=== PATIENT | female | born 1950 | race Hispanic/Latino ===

== ENCOUNTER → 2018-09-27 | Outpatient (CLI) | payer OTHER | END | disposition home or self-care (01) | LOC: RAH 14:22 | PROVIDERS: ATTEND Physical Medicine & Rehabilitation | DX: M47.26 Other spondylosis with radiculopathy, lumbar region (principal); M48.061 Spinal stenosis, lumbar region without neurogenic claudication; M41.86 Other forms of scoliosis, lumbar region | CPT/HCPCS: 72110 ==

== ENCOUNTER → 2019-10-29 | Outpatient (CLI) | payer OTHER | END | disposition home or self-care (01) | LOC: RAH 09:47 | PROVIDERS: ATTEND Internal Medicine | DX: I07.1 Rheumatic tricuspid insufficiency (principal); I48.0 Paroxysmal atrial fibrillation | CPT/HCPCS: 93306; 93356 ==

== ENCOUNTER → 2023-11-07 | Outpatient (CLI) | payer MEDICARE ==
[~2023-11-07] MED LIST: ACET-2079 PO; AEC81 PO; ALEN70TA80 PO; DONE5TAB33 PO; GABA-529 PO; LINA5TAB PO; LORA10TA7 PO; MEMA10TA21 PO; METO-408 PO; MIRA50TA PO; PANT40TA54 PO; PRAV20TA4 PO
== END | disposition home or self-care (01) ==
LOC: RAH 14:06
PROVIDERS: ATTEND Internal Medicine
DX: Z12.31 Encounter for screening mammogram for malignant neoplasm of breast (principal); R92.323 Mammographic fibroglandular density, bilateral breasts
CPT/HCPCS: 77067

== ENCOUNTER 2025-06-08 15:53 | Inpatient (IN) | payer MEDICARE ==
[~2025-06-08] VITALS: Ht 152.4 cm; Wt 84.6 kg
[~2025-06-08 15:53] MED LIST changes: -PRAV20TA4 PO; +PRAV20TA59 PO
[2025-06-08 16:16] LABS: IMMATURE GRANULOCYTE ABSOLUTE 0.03 K/uL (0-1); NUCLEATED RED BLOOD CELLS 0.0 % (0.0-0.19); PLATELET COUNT (AUTO) 162 K/uL (130-400); RED BLOOD CELL COUNT(AUTO) 3.55 MIL/uL (4.00-5.50); RED CELL DISTRIBUTION WIDTH 12.8 % (11.0-15.5); WHITE BLOOD COUNT (AUTO) 7.1 K/uL (4.8-10.8)
[2025-06-08 16:32] LABS: CREATININE 1.8 mg/dL (0.5-1.0); GLOMERULAR FILTR. RATE CALC 29 mL/min (>90); GLUCOSE,RANDOM 101 mg/dL (70-105); SODIUM SERUM 139 mmol/L (136-145); UREA NITROGEN, BLOOD 19 mg/dL (7-18)
--- NOTE | 2025-06-08 16:47 | HMCIMG ---
EXAM: CR Chest, 2 View. CLINICAL HISTORY: [facility] [place] COMPARISON: None provided. FINDINGS: LUNGS: The lungs show no infiltrate or other acute finding. PLEURAL SPACES: No pleural effusion or pneumothorax. MEDIASTINUM: Cardiac size and mediastinal contours within normal limits. BONES: No acute osseous abnormality. IMPRESSION: No acute cardiopulmonary pathology is evident. /[place]
[2025-06-08 16:54] LABS: ASPARTATE AMINOTRANSFERASE 101 U/L (10-37); TOTAL PROTEIN, SERUM 7.6 g/dL (6.0-8.3)
[2025-06-08 16:59] LABS: CREATINE KINASE, TOTAL 2895 U/L (21-232)
[2025-06-08 17:50] LABS: GLUCOSE, URINE (UA) 500 mg/dL (NEGATIVE); LEUKOCYTE ESTERASE ,URINE 500 Leu/uL (NEGATIVE); NITRATE,URINE NEGATIVE (NEGATIVE); OCCULT BLOOD,URINE MODERATE (NEGATIVE)
[2025-06-08 17:51] LABS: APPEARANCE,URINE CLOUDY (CLEAR)
[2025-06-08 17:52] LABS: ADD UA MICROSCOPIC YES
--- NOTE | 2025-06-08 18:04 | EKG ---
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
--- NOTE | 2025-06-08 18:42 | ERN ---
ED Note History of Present Illness Stated Complaint: FAILURE TO THRIVE Chief Complaint: Failure to Thrive Time Seen by MD: 15:57 Dictation: 74-year-old female presenting to the emergency department by EMS for worsening mental status failure to thrive not tolerating p.o. intake. Patient has multiple medical problems. Allergies: Coded Allergies: No Known Allergies (Unverified Allergy, Unknown, 12/30/22) Home Meds Active Scripts Linagliptin (Tradjenta) 5 Mg Tablet, 5 MG PO DAILY, #30 TAB 1 Refill Prov:JANAY GAUTAM MD 12/24/22 Pantoprazole Sodium (Pantoprazole Sodium) 40 Mg Tablet.dr, 40 MG PO DAILY, #30 TAB 1 Refill Prov:JANAY GAUTAM MD 12/24/22 Acetaminophen with Codeine (Acetaminophen-Cod #3 Tablet) 1 Each Tablet, 0.5 EACH PO Q4HPRN PRN for PAIN LEVEL 6 TO 10, #30 TAB Prov:JANAY GAUTAM MD 12/24/22 Gabapentin (Gabapentin) 100 Mg Capsule, 100 MG PO AD, #30 CAP 1 Refill 4 CAPS DAILY DIRECTED Prov:JANAY GAUTAM MD 12/24/22 Metoprolol Succinate (Metoprolol Succinate) 25 Mg Tab.er.24h, 25 MG PO DAILY, #60 TAB 1 Refill Prov:JANAY GAUTAM MD 12/22/22 Pravastatin Sodium (Pravastatin Sodium) 20 Mg Tablet, 20 MG PO HS, #60 TAB 1 Refill Prov:JANAY GAUTAM MD 12/21/22 Reported Medications Mirabegron (Myrbetriq) 50 Mg Tab.er.24h, 1 TAB PO DAILY for bladder muscle dysfunction 12/21/22 Loratadine (Claritin) 10 Mg Tab, 1 TAB PO DAILY 12/21/22 Donepezil HCl (Donepezil HCl) 5 Mg Tablet, 1 TAB PO DAILY 12/21/22 Alendronate Sodium (Alendronate Sodium) 70 Mg Tablet, 1 TAB PO QWEEK 12/21/22 Aspirin (ASPIRIN 81 MG ECTAB) 81 Mg Ectab, 81 MG PO HS, TAB.EC 12/21/22 Memantine HCl (Memantine HCl) 10 Mg Tablet, 1 TAB PO BID 12/21/22 Past Medical History Past Medical History: Dementia, Diabetes-Type II, High Cholesterol, Hypertension Surgical History: Other Surgical History Other: LEFT KNEE SX Social History: Negative, Lives with family Review of System Dictation Unable to obtain due to altered mental status Initial Vital Sign VS Vital Signs Date Time Temp Pulse Resp B/P (MAP) Pulse Ox O2 Delivery O2 Flow Rate FiO2 06/08/25 15:58 97.9 61 20 115/55 96 Room Air 0 06/08/25 17:00 21 Physical Exam Dictation General: awake, appears lethargic and weak Head/Face: Normocephalic, atraumatic Eyes: PERRL, EOMI, vision at baseline ENT: oral cavity clear, TMs clear, no signs of infection Neck: Trachea midline, supple, no nuchal rigidity Cardiovascular: RRR, normal S1/S2, No MRGs, no JVD Respiratory: CTAB, no respiratory distress, No rales or wheezes Abdomen: Soft, non-tender, non-distended, normal bowel sounds, no guarding or rebound. Skin: Warm, dry, normal turgor, no rash MS/Extremity: Pulses equal, no cyanosis, neurovascular intact, FROM Neuro: Appears lethargic weak moves all extremities follows commands, Results (Laboratory/Radiology) Laboratory/Radiology Laboratory Tests Test 06/08/25 16:06 06/08/25 17:40 White Blood Count 7.1 K/uL (4.8-10.8) Red Blood Count 3.55 MIL/uL (4.00-5.50) L Hemoglobin 10.3 g/dL (12.0-16.0) L Hematocrit 32.6 % (36-48) L Mean Corpuscular Volume 91.8 fL (79-99) Mean Corpuscular Hemoglobin 29.0 pg (27.0-33.0) Mean Corpuscular Hemoglobin Concent 31.6 g/dL (32.0-36.0) L Red Cell Distribution Width 12.8 % (11.0-15.5) Platelet Count 162 K/uL (130-400) Mean Platelet Volume 11.4 fL (7.5-10.5) H Immature Granulocyte % (Auto) 0.4 % (0-1) Neutrophils (%) (Auto) 72.2 % (40.0-77.0) Lymphocytes (%) (Auto) 16.7 % (21.0-51.0) L Monocytes (%) (Auto) 7.9 % (3.0-13.0) Eosinophils (%) (Auto) 2.5 % (0.0-8.0) Basophils (%) (Auto) 0.3 % (0.0-5.0) Neutrophils # (Auto) 5.1 K/uL (1.8-7.7) Lymphocytes # (Auto) 1.2 K/uL (1.0-4.8) Monocytes # (Auto) 0.6 K/uL (0.1-1.0) Eosinophils # (Auto) 0.18 K/uL (0.00-0.70) Basophils # (Auto) 0.02 K/uL (0.00-0.20) Absolute Immature Granulocyte (auto 0.03 K/uL (0-1) Nucleated Red Blood Cells 0.0 % (0.0-0.19) Sodium Level 139 mmol/L (136-145) Potassium Level 4.4 mmol/L (3.5-5.1) Chloride Level 106 mmol/L (101-111) Carbon Dioxide Level 29 mmol/L (21-32) Blood Urea Nitrogen 19 mg/dL (7-18) H Creatinine 1.8 mg/dL (0.5-1.0) H Glomerular Filtration Rate Calc 29 mL/min (>90) Random Glucose 101 mg/dL (70-105) Lactic Acid Level 1.2 mmol/L (0.8-2.5) Total Calcium 9.2 mg/dL (8.5-10.1) Total Bilirubin 0.6 mg/dL (0.2-1.0) Direct Bilirubin 0.1 mg/dL (0.0-0.3) Aspartate Amino Transf (AST/SGOT) 101 U/L (10-37) H Alanine Aminotransferase (ALT/SGPT) 25 U/L (12-78) Alkaline Phosphatase 63 U/L (50-136) Ammonia < 10 umol/L (11-32) L Total Creatine Kinase 2895 U/L (21-232) *H Troponin I High Sensitivity 18 ng/L (4-50) Total Protein 7.6 g/dL (6.0-8.3) Albumin 3.2 g/dL (3.5-5.0) L Lipase 26 U/L (16-77) Urine Color LIGHT-YELLOW (YELLOW) Urine Appearance CLOUDY (CLEAR) H Urine pH 5.5 (5.0-8.0) Urine Specific [place] 1.013 (1.001-1.031) Urine Protein 100 mg/dL (NEGATIVE) H Urine Glucose (UA) 500 mg/dL (NEGATIVE) H Urine Ketones NEGATIVE mg/dL (NEGATIVE) Urine Occult Blood MODERATE (NEGATIVE) H Urine Nitrate NEGATIVE (NEGATIVE) Urine Bilirubin NEGATIVE mg/dL (NEGATIVE) Urine Urobilinogen 0.2 mg/dL (0.2-1.0) Urine Leukocyte Esterase 500 [place]/uL (NEGATIVE) H Urine RBC 6-10 /HPF (0-1) H Urine WBC TNTC /HPF (0-1) H Urine Bacteria MANY /HPF (None Seen) Labs Reviewed?: Yes EKG: (+) NSR, (+) rhythm, (+) nonspecific ST T wave chg, (+) nonspecific ST T wave chg, (+) abnormal Q waves EKG Comment: Heart rate 58 normal sinus rhythm ED Course ED Course Orders Procedure Category Date Status Time 12 Lead Ekg Tracing- EKG 06/08/25 Complete Technical 15:58 Ammonia LAB 06/08/25 Complete 15:58 Basic Metabolic Panel LAB 06/08/25 Complete 15:58 Blood Cult RITA 06/08/25 In Process 15:58 Cbc With Differential LAB 06/08/25 Complete 15:58 Creatine Kinase, Total LAB 06/08/25 Complete 15:58 Hepatic Function Panel LAB 06/08/25 Complete 15:58 Lactic Acid LAB 06/08/25 Complete 15:58 Troponin I High LAB 06/08/25 Complete Sensitivity 15:58 Urinalysis Profile LAB 06/08/25 Complete 15:58 Chest 1vw RAD 06/08/25 Resulted 15:58 Lipase LAB 06/08/25 Complete 15:58 Culture Urine RITA 06/08/25 In Process 17:52 Vital Signs Date Time Temp Pulse Resp B/P (MAP) Pulse Ox O2 Delivery O2 Flow Rate FiO2 06/08/25 17:00 97.9 55 19 109/60 97 Room Air* 0 21 06/08/25 15:58 97.9 61 20 115/55 96 Room Air 0 Medical Decision Making MDM MDM: Differential diagnosis: Rationale: Tests considered and ordered secondary to shared decision making i nclude: labs, ECG and radiology Previous outside records reviewed: Old ER visits. Risk of complication and/or morbidity or mortality of patient management: None Medications-Per medication reconciliation Need for hospitalization: Patient does meet criteria for hospitalization. Need for emergency major/minor surgery: No There are no social concerns with this patient. Prescription drug management Prescriptions will include symptomatic care Patient's prior external medical records from other ER visits were reviewed by me as indicated. Prior testing and results from previous visits were reviewed. Prior tests were taken into account with medical decision making and resource utilization, independent historian/historians were used to obtain complete medical history. I independently interpreted the test that were performed, results were reviewed by me and considered findings on radiology if ordered. Medical management and examination interpretation discussions were had by me with other qualified healthcare professionals as indicated for the patient's care. 74-year-old female with worsening altered mental status failure to thrive, UTI, rhabdo and acute renal insufficiency IV fluids and antibiotics given admitting to medicine for additional care and evaluation. DX & DISP Disposition: Inpatient Departure Impression: Primary Impression: Rhabdomyolysis Additional Impressions: Acute UTI, Altered mental state, Acute renal insufficiency Condition: Stable Referrals: JANAY GAUTAM MD (PCP) PITO SMALL MD Jun 08, 2025 18:42
--- NOTE | 2025-06-08 19:46 | HP ---
[facility] Date of Service: Jun 08, 2025 Time of Service: 19:46 PCP: Zack Munoz HISTORY OF PRESENT ILLNESS: This is a 74 year old female past medical history of dementia, diabetes type 2, hypertension , hyperlipidemia, paroxysmal atrial fibrillation, peripheral neuropathy, chronic kidney disease, endometrial cancer with hysterectomy, morbid obesity, osteoporosis and Chronic obstructive pulmonary disease who was brought by EMS to the ED for worsening mental status,failure to thrive not tolerating PO and generalized body weakness.As per Sister Marianne who was present at the bedside during my evaluation, patient is not eating and drinking much for several days and patient used to get up to go to the rest room on her own without help today around 5 pm patient suddenly unable to get up and walk and patient is more confused than usual.As per sister patient was also like this y esterday and she called the ambulance and they checked on the patient she said and was told everything was fine and today patient is too weak to get out of bed and she is unable to help her so she decided to bring the patient to the ER for evaluation. Seen and examined patient in the ER awake,alert and pleasantly confused.Patient appears comfortable in no apparent distress she knows her name and where she is.Patient denies chest pain,palpitation and shortness fo breath. Latest vital signs temperature 98.8, heart rate 62, blood pressure 105/45 saturation 100% on room air. Labs: WBC 7, hemoglobin 10, hematocrit 32, Platelet 162. BUN 19, creatinine 1.8, GFR 29 total CK 2895 troponin 18. Urinalysis consistent with urinary tract infection chest x-ray result revealed no acute cardiopulmonary pathology is evident. REVIEW OF SYSTEMS CONSTITUTIONAL: Denies fevers, chills, or night sweats. No unintentional weight loss reported. NEUROLOGICAL: Denies headache, amaurosis fugax, motor weakness, sensory deficit, vertigo/spinning sensation, gait abnormalities, or tremors. ENT: No hearing loss, otalgia, otorrhea, rhinitis, rhinorrhea, hoarseness, or sore throat. CARDIOVASCULAR: Denies any exertional angina, dyspnea on exertion, orthopnea, paroxysmal nocturnal dyspnea, palpitations, life-threatening arrhythmias, claudication. PULMONARY: Denies any shortness of breath, cough, phlegm/sputum, hemoptysis, pleuritic chest pain. SLEEP: Denies morning headaches, daytime somnolence or napping. Denies difficulty falling asleep, staying asleep, waking from sleep. Denies knowledge of snoring. GASTROINTESTINAL: Denies any type of dysphagia to either liquids or solids. Denies nausea, vomiting, pyrosis, early satiety, abdominal pain, diarrhea, constipation, or changes in stool consistency or caliber. Denies coffee-ground emesis, hematemesis, hematochezia, or melanotic stools. GENITOURINARY: Denies frequency, urgency, nocturia, hematuria or incontinence (Storage/Irritative symptoms.) Low urinary stream, straining to void, urinary intermittency or hesitancy, splitting of the voiding stream, terminal dribbling. ENDOCRINOLOGIC: Denies polyuria, polydipsia, polyphagia or heat/cold intolerances. HEMATOLOGIC: Denies thrombophilia/previous clots, or coagulopathy/bleeding disorders. ONCOLOGIC: Denies personal history of malignancy. DERMATOLOGIC: Denies rashes or pruritus. PSYCHIATRIC: Denies any suicidal or homicidal ideation. Denies hallucinations. PAST MEDICAL HISTORY: [ dementia, diabetes type 2, hypertension , hyperlipidemia, paroxysmal atrial fibrillation, peripheral neuropathy, chronic kidney disease, endometrial cancer with hysterectomy, morbid obesity, osteoporosis and Chronic obstructive pulmonary disease ] PAST SURGICAL HISTORY: [Hysterectomy, bilateral knee replacement, ] PAST SOCIAL HISTORY: [Patient lives with sister. Patient denies alcohol tobacco and recreational drug use ] FAMILY HISTORY: [ Hypertension, diabetes, stroke and cardiovascular disease ] Coded Allergies: No Known Allergies (Unverified Allergy, Unknown, 12/30/22) PHYSICAL EXAM GENERAL APPEARANCE: The patient is awake, alert, and oriented, in no acute cardiopulmonary distress. NEUROLOGICAL: Cranial nerves II-XII grossly intact. Motor is 5/5 in bilateral upper and lower extremities proximal to distal. No sensory deficits. HEENT: Face is symmetric. Pupils are equal and reactive. Extraocular movements are intact. NECK: Supple. No JVD. No thyromegaly. No submental, submandibular, pre- /postauricular, occipital or supraclavicular lymphadenopathy. CHEST: Normal chest expansion. No Telemetry. LUNGS: Absence of any rales, rhonchi or any wheezing. CARDIOVASCULAR: Regular. S1 and S2 normal. No appreciable rubs, murmurs or gallops. ABDOMEN: Soft, nontender, and nondistended. There is no rebound, voluntary guarding, or rigidity. : Deferred. No [place]. EXTREMITIES: Non-edematous and not cyanotic. No clubbing. Good capillary refill. SKIN: No skin breakdown. Vital Sign (Last 24 Hours) 06/08/25 18:36 Temp 97.9 Pulse 53 Resp 15 B/P (MAP) 111/50 Pulse Ox 100 O2 Delivery Nasal Cannula* O2 Flow Rate 2 FiO2 28 LABS: Laboratory: Test 06/08/25 17:40 06/08/25 16:06 Range/Units Urine Color LIGHT-YELLOW YELLOW Urine Appearance CLOUDY H CLEAR Urine pH 5.5 5.0-8.0 Urine Specific [place] 1.013 1.001-1.031 Urine Protein 100 H NEGATIVE mg/dL Urine Glucose (UA) 500 H NEGATIVE mg/dL Urine Ketones NEGATIVE NEGATIVE mg/dL Urine Occult Blood MODERATE H NEGATIVE Urine Nitrate NEGATIVE NEGATIVE Urine Bilirubin NEGATIVE NEGATIVE mg/dL Urine Urobilinogen 0.2 0.2-1.0 mg/dL Urine Leukocyte Esterase 500 H NEGATIVE [place]/uL Urine RBC 6-10 H 0-1 /HPF Urine WBC TNTC H 0-1 /HPF Urine Bacteria MANY None Seen /HPF White Blood Count 7.1 4.8-10.8 K/uL Red Blood Count 3.55 L 4.00-5.50 MIL/uL Hemoglobin 10.3 L 12.0-16.0 g/dL Hematocrit 32.6 L 36-48 % Mean Corpuscular Volume 91.8 79-99 fL Mean Corpuscular Hemoglobin 29.0 27.0-33.0 pg Mean Corpuscular Hemoglobin Concent 31.6 L 32.0-36.0 g/dL Red Cell Distribution Width 12.8 11.0-15.5 % Platelet Count 162 130-400 K/uL Mean Platelet Volume 11.4 H 7.5-10.5 fL Immature Granulocyte % (Auto) 0.4 0-1 % Neutrophils (%) (Auto) 72.2 40.0-77.0 % Lymphocytes (%) (Auto) 16.7 L 21.0-51.0 % Monocytes (%) (Auto) 7.9 3.0-13.0 % Eosinophils (%) (Auto) 2.5 0.0-8.0 % Basophils (%) (Auto) 0.3 0.0-5.0 % Neutrophils # (Auto) 5.1 1.8-7.7 K/uL Lymphocytes # (Auto) 1.2 1.0-4.8 K/uL Monocytes # (Auto) 0.6 0.1-1.0 K/uL Eosinophils # (Auto) 0.18 0.00-0.70 K/uL Basophils # (Auto) 0.02 0.00-0.20 K/uL Absolute Immature Granulocyte (auto 0.03 0-1 K/uL Nucleated Red Blood Cells 0.0 0.0-0.19 % Sodium Level 139 136-145 mmol/L Potassium Level 4.4 3.5-5.1 mmol/L Chloride Level 106 101-111 mmol/L Carbon Dioxide Level 29 21-32 mmol/L Blood Urea Nitrogen 19 H 7-18 mg/dL Creatinine 1.8 H 0.5-1.0 mg/dL Glomerular Filtration Rate Calc 29 >90 mL/min Random Glucose 101 70-105 mg/dL Lactic Acid Level 1.2 0.8-2.5 mmol/L Total Calcium 9.2 8.5-10.1 mg/dL Total Bilirubin 0.6 0.2-1.0 mg/dL Direct Bilirubin 0.1 0.0-0.3 mg/dL Aspartate Amino Transf (AST/SGOT) 101 H 10-37 U/L Alanine Aminotransferase (ALT/SGPT) 25 12-78 U/L Alkaline Phosphatase 63 50-136 U/L Ammonia < 10 L 11-32 umol/L Total Creatine Kinase 2895 *H 21-232 U/L Troponin I High Sensitivity 18 4-50 ng/L Total Protein 7.6 6.0-8.3 g/dL Albumin 3.2 L 3.5-5.0 g/dL Lipase 26 16-77 U/L DIAGNOSTICS / RADIOLOGY: [ ] ASSESSMENT: Acute rhabdomyolysis POA Failure to thrive POA Functional decline POA Acute metabolic encephalopathy versus worsening dementia POA Acute urinary tract infection POA Acute kidney injury on chronic kidney disease POA Acute anemia POA Diabetes POA Hypertension POA Hyperlipidemia POA PLAN: We will admit patient in medical telemetry We will start on full liquid diet diet We will start NS @ 100 ml / hr x2 bags and re evaluate Rocephin 1 g IV daily for empiric coverage We will start on famotidine 20 mg p.o. daily for GI prophylaxis We will replace electrolytes as needed per protocol We will start on insulin sliding scale AC & HS with hypoglycemia protocol We will add prn medication for fever,pain,cough , nausea and vomiting We will reconcile home meds once medlist available We we will request case management service We will request for dietary consultation to assess malnutrition We will request PT service We will request labs in am Further orders to follow depending on above results Case discussed with attending physician and came up with above treatment and plan of care. ADVANCED CARE PLANNING 1. Which of the following were discussed? Hospice Care - No Therapeutic options - Yes Advance Directives - No Other discussions - 2. Discussed with who? Patient and sister Marianne Laboy 3. Voluntary nature of this service was explained to the patient? Yes 4. Amount of time spent - _24 min 5. Reviewed by Physician? (if this service was performed by NPP) Yes Patient seen and examined by me. Agree with note by REGULATORY PROCESS MANAGER SEE ADDITIONAL ORDERS PER CHART DISCUSSED WITH NURSING STAFF SMITA COONEY SPARES SCHEDULER Jun 08, 2025 19:46
[2025-06-08] MEDS: 0.9%NACL 1000ML 1,000 ML IV SCH (20:19)
--- NOTE | 2025-06-08 20:53 | NUR ---
REPORT GIVEN TO HELIO; RM 319
[2025-06-08 21:00] VITALS: BP 139/43; PULSE 56; RESP 20; TEMP 98.2
[2025-06-08 21:10] VITALS: O2SAT 100
--- NOTE | 2025-06-08 21:10 | NUR ---
ADMIT PT ADMITTED TO ROOM 319, EASILY AWAKEN WITH VERBAL COMMAND AND IS COHERENT WHEN CONVERSING. ADMISSION CARE DONE. ADMISSION V/S MONITORED,STABLE. PLACED COMFORTABLY IN BED WITH HOB ELEVATED. CONTINUED IVF OF NS FROM ER REGULATED AT 100CC/HR. ADMISSION ASSESSMENT DONE, PLEASE REFER TO CHART. PT'S SISTER AT BEDSIDE AND WILL STAY THE NIGHT. PT'S HOME MEDS WILL BE PROVIDED BY SISTER IN AM, PENDING FOR UPDATE IN THE SYSTEM. ORIENTED TO ROOM AND UNIT. CALL LIGHT WITHIN REACH. IN FOR MORE CARE AND MANAGEMENT.
[2025-06-08 21:22] VITALS: BP 105/45; PULSE 62; RESP 18; TEMP 98.7
[2025-06-08 23:59] VITALS: BP 105/57; PULSE 60; RESP 18; TEMP 98
[2025-06-09 03:55] VITALS: BP 121/65; PULSE 61; RESP 18; TEMP 98.6
[2025-06-09 05:02] LABS: IMMATURE GRANULOCYTE ABSOLUTE 0.04 K/uL (0-1); NUCLEATED RED BLOOD CELLS 0.0 % (0.0-0.19); PLATELET COUNT (AUTO) 128 K/uL (130-400); RED BLOOD CELL COUNT(AUTO) 3.63 MIL/uL (4.00-5.50); RED CELL DISTRIBUTION WIDTH 12.6 % (11.0-15.5); WHITE BLOOD COUNT (AUTO) 6.3 K/uL (4.8-10.8)
[2025-06-09 05:40] LABS: ASPARTATE AMINOTRANSFERASE 109.0 U/L (10-37); CREATININE 1.7 mg/dL (0.5-1.0); GLOMERULAR FILTR. RATE CALC 31.0 mL/min (>90); GLUCOSE,RANDOM 71.0 mg/dL (70-105); SODIUM SERUM 141.0 mmol/L (136-145); TOTAL PROTEIN, SERUM 6.8 g/dL (6.0-8.3); UREA NITROGEN, BLOOD 17.0 mg/dL (7-18)
--- NOTE | 2025-06-09 05:50 | NUR ---
GLUCOSE PT'S BLOOD SUGAR CHECK=69. PT IS EASILY AWAKEN WITH VERBAL COMMAND. ORANGE JUICE WITH SUGAR AND JELL-O GIVEN. PT ABLE TO TAKE LIQUIDS FINE. KEPT RESTED IN BED. WILL RE-ASSESS PT. FOR MORE CARE.
[2025-06-09 05:57] LABS: CREATINE KINASE, TOTAL 2571.0 U/L (21-232)
[2025-06-09 08:00] VITALS: BP 117/40; PULSE 58; RESP 20; TEMP 97.7
[2025-06-09] MEDS: FAMOTIDINE 20MG TAB PO SCH (08:28)
[2025-06-09] MEDS ORDERED: MAGNESIUM 2GM PREMIX 50ML 50 ML IV PRN (10:00)
[2025-06-09] MEDS ORDERED: PoTASSium chloRIDE 20MEQ ER 20 MEQ ERTAB PO PRN (10:00)
[2025-06-09] MEDS ORDERED: PoTASSium chl 10% ELIXIR 20MEQ 20 MEQ/15 ML UDCUP PO PRN (10:00)
[2025-06-09] MEDS ORDERED: MEMA10TA21 PO (10:06)
[2025-06-09] MEDS ORDERED: PANT20TA18 PO (10:06)
[2025-06-09] MEDS ORDERED: ROSU10TA98 PO ×2 (10:06)
[2025-06-09] MEDS ORDERED: SITA100T12 PO (10:06)
[2025-06-09] MEDS ORDERED: METO-408 PO (10:06)
[2025-06-09] MEDS ORDERED: DENO60DI SQ ×2 (10:06→10:07)
[2025-06-09] MEDS ORDERED: ARIP5TAB51 PO (10:06)
[2025-06-09] MEDS ORDERED: SPIR25TA6 PO (10:06)
[2025-06-09] MEDS ORDERED: MIRA50TA PO (10:06)
[2025-06-09] MEDS ORDERED: DAPA5TAB PO (10:06)
[2025-06-09] MEDS ORDERED: GABA300C PO (10:06)
[2025-06-09] MEDS ORDERED: ASPI-1443 PO (10:06)
[2025-06-09] MEDS ORDERED: FERR-72 PO (10:06)
[2025-06-09] MEDS ORDERED: NITR0.4T50 SL (10:08)
--- NOTE | 2025-06-09 10:37 | NUR ---
DCP:HOME vs SNF Pt currently lives at home with her sister. Pt has a walker at home that she uses to ambulate. Pt does not have a provider or home health services. Pt 's sister does assist with ADLs. PCP is Dr. Tammy Dixon and uses [facility] for any RX needs. At sister states that she is willing to consider a SNF if pt requires one if now she can go home.
[2025-06-09 11:49] VITALS: O2SAT 99
[2025-06-09 12:00] VITALS: BP 142/67; PULSE 61; RESP 20; TEMP 97.6
[2025-06-09 16:00] VITALS: BP 121/45; PULSE 81; RESP 20; TEMP 98
--- NOTE | 2025-06-09 17:05 | PN ---
[facility] PROGRESS NOTE Date of Service: Jun 09, 2025 Time of Service: 16:44 HISTORY OF PRESENT ILLNESS: This is a 74 year old female past medical history of dementia, diabetes type 2, hypertension , hyperlipidemia, paroxysmal atrial fibrillation, peripheral neuropathy, chronic kidney disease, endometrial cancer with hysterectomy, morbid obesity, osteoporosis and Chronic obstructive pulmonary disease who was brought by EMS to the ED for worsening mental status,failure to thrive not tolerating PO and generalized body weakness.As per Sister Marianne who was present at the bedside during my evaluation, patient is not eating and drinking much for several days and patient used to get up to go to the rest room on her own without help today around 5 pm patient suddenly unable to get up and walk and patient is more confused than usual.As per sister patient was also like this yesterday and she called the ambulance and they checked on the patient she said and was told everything was fine and today patient is too weak to get out of bed and she is unable to help her so she decided to bring the patient to the ER for evaluation. Seen and examined patient in the ER awake,alert and pleasantly confused.Patient appears comfortable in no apparent distress she knows her name and where she is.Patient denies chest pain,palpitation and shortness fo breath. Latest vital signs temperature 98.8, heart rate 62, blood pressure 105/45 saturation 100% on room air. Labs: WBC 7, hemoglobin 10, hematocrit 32, Platelet 162. BUN 19, creatinine 1.8, GFR 29 total CK 2895 troponin 18. Urinalysis consistent with urinary tract infection chest x-ray result revealed no acute cardiopulmonary pat hology is evident. SUBJECTIVE: 06/09/25: Patient was seen and evaluated in room 319 along with her sister on bedside. Patient was asleep when we entered the room. After waking up patient was awake, alert and orientedX3. As per patients daughter patient has been not eating and drinking for the last one week and has genralised weakness. Patient is currently on clear liquid diet and Diet evaluation was ordered. Pertinent labs- Total C.K- 2895>2571. Urinalysis was done which was positive for urinalysis. REVIEW OF SYSTEMS CONSTITUTIONAL: Denies fevers, chills, or night sweats. No unintentional weight loss reported. NEUROLOGICAL: Denies headache, amaurosis fugax, motor weakness, sensory deficit, vertigo/spinning sensation, gait abnormalities, or tremors. ENT: No hearing loss, otalgia, otorrhea, rhinitis, rhinorrhea, hoarseness, or sore throat. CARDIOVASCULAR: Denies any exertional angina, dyspnea on exertion, orthopnea, paroxysmal nocturnal dyspnea, palpitations, life-threatening arrhythmias, claudication. PULMONARY: Denies any shortness of breath, cough, phlegm/sputum, hemoptysis, pleuritic chest pain. SLEEP: Denies morning headaches, daytime somnolence or napping. Denies difficu lty falling asleep, staying asleep, waking from sleep. Denies knowledge of snoring. GASTROINTESTINAL: Denies any type of dysphagia to either liquids or solids. Denies nausea, vomiting, pyrosis, early satiety, abdominal pain, diarrhea, constipation, or changes in stool consistency or caliber. Denies coffee-ground emesis, hematemesis, hematochezia, or melanotic stools. GENITOURINARY: Denies frequency, urgency, nocturia, hematuria or incontinence (Storage/Irritative symptoms.) Low urinary stream, straining to void, urinary intermittency or hesitancy, splitting of the voiding stream, terminal dribbling. ENDOCRINOLOGIC: Denies polyuria, polydipsia, polyphagia or heat/cold intol erances. HEMATOLOGIC: Denies thrombophilia/previous clots, or coagulopathy/bleeding disorders. ONCOLOGIC: Denies personal history of malignancy. DERMATOLOGIC: Denies rashes or pruritus. PSYCHIATRIC: Denies any suicidal or homicidal ideation. Denies hallucinations. PHYSICAL EXAM GENERAL APPEARANCE: The patient is awake, alert, and oriented, in no acute cardiopulmonary distress. NEUROLOGICAL: Cranial nerves II-XII grossly intact. Motor is 5/5 in bilateral upper and lower extremities proximal to distal. No sensory deficits. HEENT: Face is symmetric. Pupils are equal and reactive. Extraocular movements are intact. NECK: Supple. No JVD. No thyromegaly. No submental, submandibular, pre- /postauricular, occipital or supraclavicular lymphadenopathy. CHEST: Normal chest expansion. No Telemetry. LUNGS: Absence of any rales, rhonchi or any wheezing. CARDIOVASCULAR: Regular. S1 and S2 normal. No appreciable rubs, murmurs or gallops. ABDOMEN: Soft, nontender, and nondistended. There is no rebound, voluntary guarding, or rigidity. : Deferred. No Norton. EXTREMITIES: Non-edematous and not cyanotic. No clubbing. Good capillary refill. SKIN: No skin breakdown. Vital Signs (last 8hr) Date Time Temp Pulse Resp B/P (MAP) Pulse Ox O2 Delivery O2 Flow Rate FiO2 06/09/25 12:00 97.5 61 20 142/67 100 Nasal Cannula 2.0 24 06/09/25 11:49 99 Nasal Cannula* 2 28 LABS: Laboratory: Test 06/09/25 16:23 06/09/25 10:02 06/09/25 04:53 06/08/25 17:40 Range/Units Whole Blood Glucose 97 70-110 MG/DL Total Creatine Kinase 2071 *H 21-232 U/L White Blood Count 6.3 4.8-10.8 K/uL Red Blood Count 3.63 L 4.00-5.50 MIL/uL Hemoglobin 10.5 L 12.0-16.0 g/dL Hematocrit 34.0 L 36-48 % Mean Corpuscular Volume 93.7 79-99 fL Mean Corpuscular Hemoglobin 28.9 27.0-33.0 pg Mean Corpuscular Hemoglobin Concent 30.9 L 32.0-36.0 g/dL Red Cell Distribution Width 12.6 11.0-15.5 % Platelet Count 128 L 130-400 K/uL Mean Platelet Volume 11.1 H 7.5-10.5 fL Immature Granulocyte % (Auto) 0.6 0-1 % Neutrophils (%) (Auto) 68.5 40.0-77.0 % Lymphocytes (%) (Auto) 17.7 L 21.0-51.0 % Monocytes (%) (Auto) 9.3 3.0-13.0 % Eosinophils (%) (Auto) 3.3 0.0-8.0 % Basophils (%) (Auto) 0.6 0.0-5.0 % Neutrophils # (Auto) 4.3 1.8-7.7 K/uL Lymphocytes # (Auto) 1.1 1.0-4.8 K/uL Monocytes # (Auto) 0.6 0.1-1.0 K/uL Eosinophils # (Auto) 0.21 0.00-0.70 K/uL Basophils # (Auto) 0.04 0.00-0.20 K/uL Absolute Immature Granulocyte (auto 0.04 0-1 K/uL Nucleated Red Blood Cells 0.0 0.0-0.19 % Red Blood Cell Morphology See comments Sodium Level 141 136-145 mmol/L Potassium Level 3.9 3.5-5.1 mmol/L Chloride Level 109 101-111 mmol/L Carbon Dioxide Level 26 21-32 mmol/L Blood Urea Nitrogen 17 7-18 mg/dL Creatinine 1.7 H 0.5-1.0 mg/dL Glomerular Filtration Rate Calc 31 >90 mL/min Random Glucose 71 70-105 mg/dL Total Calcium 8.7 8.5-10.1 mg/dL Magnesium Level 1.80 1.80-2.40 mg/dL Total Bilirubin 0.5 0.2-1.0 mg/dL Aspartate Amino Transf (AST/SGOT) 109 H 10-37 U/L Alanine Aminotransferase (ALT/SGPT) 27 12-78 U/L Alkaline Phosphatase 55 50-136 U/L Total Protein 6.8 6.0-8.3 g/dL Albumin 2.8 L 3.5-5.0 g/dL Vitamin B12 Level 277 193-986 pg/mL Thyroid Stimulating Hormone (TSH) 1.17 0.36-3.74 uIU/mL Urine Color LIGHT-YELLOW YELLOW Urine Appearance CLOUDY H CLEAR Urine pH 5.5 5.0-8.0 Urine Specific [place] 1.013 1.001-1.031 Urine Protein 100 H NEGATIVE mg/dL Urine Glucose (UA) 500 H NEGATIVE mg/dL Urine Ketones NEGATIVE NEGATIVE mg/dL Urine Occult Blood MODERATE H NEGATIVE Urine Nitrate NEGATIVE NEGATIVE Urine Bilirubin NEGATIVE NEGATIVE mg/dL Urine Urobilinogen 0.2 0.2-1.0 mg/dL Urine Leukocyte Esterase 500 H NEGATIVE Yumiko/uL Urine RBC 6-10 H 0-1 /HPF Urine WBC TNTC H 0-1 /HPF Urine Bacteria MANY None Seen /HPF Test 06/08/25 16:06 Range/Units Lactic Acid Level 1.2 0.8-2.5 mmol/L Direct Bilirubin 0.1 0.0-0.3 mg/dL Ammonia < 10 L 11-32 umol/L Troponin I High Sensitivity 18 4-50 ng/L Lipase 26 16-77 U/L Current Medications Medications (Trade) Dose Ordered Sig/Cindy Route PRN Reason Start Time Stop Time Status Last Admin Dose Admin Acetaminophen (TYLenol 325MG TAB) 650 mg Q4H PRN PO MILD PAIN (1-3) 06/08/25 20:00 07/08/25 19:59 Acetaminophen (TYLenol 325MG TAB) 650 mg Q6H PRN PO TEMPERATURE GREATER THAN 101.5 06/08/25 20:00 07/08/25 19:59 Acetaminophen/ Codeine Phosphate (TYLenol-coDEINE TAB) 1 tab Q6H PRN PO MODERATE PAIN (4-6) 06/09/25 10:00 07/09/25 09:59 Ceftriaxone Sodium 1 gm/ Sodium Chloride 50 ml @ 100 mls/hr Q24H IV 06/08/25 20:00 06/08/25 20:03 DC Ceftriaxone Sodium (ROCEphine 1G INJ) 1 gm Q24H IVPB 06/08/25 20:30 06/18/25 20:29 06/08/25 20:19 1 GM Famotidine (Pepcid 20mg Tab) 20 mg DAILY PO 06/09/25 09:00 07/09/25 08:59 06/09/25 08:28 20 MG Magnesium Sulfate 50 ml @ 0 mls/hr PROTOCOL PRN IV PRN 06/09/25 10:00 07/09/25 09:59 Ondansetron HCl (zoFRAN 4MG INJ) 4 mg Q6H PRN IV NAUSEA/VOMITING 06/08/25 20:00 07/08/25 19:59 Potassium Chloride 100 ml @ 100 mls/hr AD PRN IV POTASSIUM PROTOCOL 06/09/25 10:00 07/09/25 09:59 Potassium Chloride (K-Dur/Klor-Con 20meq) 20 meq AD PRN PO POTASSIUM PROTOCOL 06/09/25 10:00 07/09/25 09:59 Potassium Chloride (KCl 10% Elixir 20meq/15ml) 20 meq AD PRN PO POTASSIUM PROTOCOL 06/09/25 10:00 07/09/25 09:59 Sodium Chloride 1,000 ml @ 100 mls/hr Q10H IV 06/08/25 20:00 07/08/25 19:59 06/09/25 05:17 100 MLS/HR DIAGNOSTICS / RADIOLOGY: [facility] [address] [address] IMAGING REPORT Signed PATIENT: YOSELIN JAY MR#: [id number] : 1950 SEX: F AGE: 74 LOCATION: [facility] ORDER 58 STATUS: REG ER REPORT#: [id number] SERVICE 57 REASON: gbw ORDERING PHYSICIAN: PITO SMALL MD PROCEDURE: CXR1VW - CHEST 1VW EXAM: CR Chest, 2 View. CLINICAL HISTORY: gbw COMPARISON: None provided. FINDINGS: LUNGS: The lungs show no infiltrate or other acute finding. PLEURAL SPACES: No pleural effusion or pneumothorax. MEDIASTINUM: Cardiac size and mediastinal contours within normal limits. BONES: No acute osseous abnormality. IMPRESSION: No acute cardiopulmonary pathology is evident. /[place] DICTATED BY: NIXON JOSEPH MD DATE: 06/08/251744 ELECTRONICALLY SIGNED BY: NIXON JOSEPH MD DATE: 06/08/251744 ASSESSMENT: Acute rhabdomyolysis POA Failure to thrive POA Functional decline POA Acute metabolic encephalopathy versus worsening dementia POA Acute urinary tract infection POA Acute kidney injury on chronic kidney disease POA Acute anemia POA Diabetes POA Hypertension POA Hyperlipidemia POA PLAN: Acute rhabdomyolysis POA * Pertinent labs Total C.K- 2895>2571. BUN 19>17. Creatinine 1.8>1.7 * Patient is on IV hydartion with 0.9% NACL with 100ml at 100ml/hr. * Will monitor daily CK levels * Will monitor daily labs. * Will monitor with daily I&O Acute metabolic encephalopathy versus worsening dementia POA * Vitamin D, Vitamin B12, Folic was ordered. Ammonia <10 * Urinalysis was ordered, results were positive for UTI * Ceftriaxone 1gm was started * Will monitor with daily metabolic panel. Acute urinary tract infection POA * Urinalysis was ordered, results were positive for UTI, positive for occult blood, Protein (100) glucose (500), Leukocyte esterase -500 WBC- TNTC, RBC 6- 10 * Urine culture was ordered, pending results * Ceftriaxone 1gm was started Failure to thrive POA * Patient is currently on full liquid diet, will advanced diet as tolerated. * Ordered dietary consultation to assess malnutrition Supportive measures: GI prophylaxis with famotidine 20 mg p.o. DVT prophylaxis with SCD's ATTESTATION BY PHYSICIAN I have seen and examined the patient. I reviewed the documentation, medical decision making, and treatment plan as noted by the resident physician above. I agree with the findings and plan of care. NEEL PACHECO MD, SHAJI MD Jun 09, 2025 17:05
[2025-06-09 20:00] VITALS: BP 106/49; PULSE 79; RESP 20; TEMP 98; O2SAT 98
[2025-06-10] VITALS (7 sets, daily range): BP systolic 116–142; BP diastolic 48–60; PULSE 68–100; RESP 20; TEMP 97.6–98.4; O2SAT 93–100
[2025-06-10 05:02] LABS: IMMATURE GRANULOCYTE ABSOLUTE 0.02 K/uL (0-1); NUCLEATED RED BLOOD CELLS 0.0 % (0.0-0.19); PLATELET COUNT (AUTO) 133 K/uL (130-400); RED BLOOD CELL COUNT(AUTO) 3.14 MIL/uL (4.00-5.50); RED CELL DISTRIBUTION WIDTH 12.5 % (11.0-15.5); WHITE BLOOD COUNT (AUTO) 6.4 K/uL (4.8-10.8)
[2025-06-10 05:28] LABS: ASPARTATE AMINOTRANSFERASE 66.0 U/L (10-37); CREATININE 1.4 mg/dL (0.5-1.0); GLOMERULAR FILTR. RATE CALC 39.0 mL/min (>90); GLUCOSE,RANDOM 88.0 mg/dL (70-105); SODIUM SERUM 140.0 mmol/L (136-145); TOTAL PROTEIN, SERUM 6.0 g/dL (6.0-8.3); UREA NITROGEN, BLOOD 15.0 mg/dL (7-18)
[2025-06-10 05:33] LABS: CREATINE KINASE, TOTAL 924.0 U/L (21-232)
--- NOTE | 2025-06-10 12:29 | NUR ---
Called in new consult and spoke to Felicity at [facility]
--- NOTE | 2025-06-10 12:30 | NUR ---
BEDSIDE SWALLOW EVAL COMPLETED. No s/s of aspiration RECOMMEND: regular solids, thin liquids and pills whole with liquids as tolerated. COMPENSATORY STRATEGIES: 1. sit upright during oral intake WOOD STOCK BLANK HANDLER reviewed results and recommendations with patient, sister (present at time of visit), and nurse Margaret. WOOD STOCK BLANK HANDLER educated patient on risks and consequences of aspiration. Speech therapy not warranted at this time. All questions answered. Addendum: 06/10/[address] [facility] Amended: Links added.
--- NOTE | 2025-06-10 12:35 | NUR ---
MBSS NOT WARRANTED AT THIS TIME. BOTTOM BUFFER coordinated with Dena Rosen. As per MD, exam needed was the barium swallow study (upper GI series). MBSS cancelled at this time. All questions answered (bedside evaluation was completed prior to cancellation of MBSS).
--- NOTE | 2025-06-10 13:31 | CONS ---
INFECTIOUS DISEASE CONSULTATION NOTE Date of Service: Jun 10, 2025 Reason for Consultation: Urinary tract infection with ESBL, Klebsiella pneumoniae. Requesting Physician: Dr. Tyrese Mata. HISTORY OF PRESENT ILLNESS: This is a 74-year-old female patient with past medical history of diabetes mellitus, hypertension, hyperlipidemia, chronic kidney disease, endometrial cancer, atrial fibrillation and morbid obesity who was brought to the emergency room by family members due to worsening mental status, generalized body weakness and has been able to tolerate oral food. On admission patient is CK level was 2895. No reports of fall. Patient's BUN was 19 and creatinine of 1.8 and no fever on admission. A urine culture collected on admission came back positive for ESBL, Klebsiella pneumoniae and the reason for this consult. Patient has been started on Ceftriaxone. We will discontinue ceftriaxone and start patient on Zosyn 3.375 g IV q.12 hours. We will have case management evaluate patient for referral to SNF for 10 days of IV antibiotics. REVIEW OF SYSTEMS CONSTITUTIONAL: Denies fever, chills, or fatigue. HEAD/FACE: No signs of trauma. EENT: Denies eye pain, blurred vision, double vision, or light sensitivity. RESPIRATORY: Denies shortness of breath, cough, wheezing CARDIOVASCULAR: Denies chest pain, palpitation, syncope GASTROINTESTINAL/ABDOMINAL: Denies abdominal pain, constipation, diarrhea, nausea or vomiting GENITOURINARY: Denies dysuria or hematuria. MUSCULOSKELETAL: Generalized body weakness INTEGUMENTARY: Denies rash or itchiness NEUROLOGICAL/PSYCH: Worsening mental status, failure to thrive. PAST MEDICAL HISTORY: Diabetes mellitus. Hypertension. Atrial fibrillation. Chronic kidney disease. Endometrial cancer. Morbid obesity. Dementia. Hyperlipidemia. PAST SURGICAL HISTORY: Right knee surgery. Hysterectomy. PAST SOCIAL HISTORY: Denied current use of tobacco, alcohol or any other illicit drug. FAMILY HISTORY: Brother and mother had diabetes mellitus. Coded Allergies: No Known Allergies (Unverified Allergy, Unknown, 12/30/22) PHYSICAL EXAM EYES: Anicteric. Pupils equal and reactive. HENT: No oral thrush seen, moist Oral mucosa. NECK: Supple, no JVD or thyromegaly. LUNGS: Good air entry. No rales, no rhonchi. CARDIOVASCULAR: S1, S2 regular. No murmur heard. ABDOMEN: Soft, non tender, bowel sounds present. CENTRAL NERVOUS SYSTEM: Awake, alert, oriented x 2. SKIN: No rashes, no swelling. LYMPHATICS: No peripheral lymphadenopathy MUSCULOSKELETAL: Generalized Debility. EXTREMITIES: No cyanosis or clubbing BACK: No deformity, no pressure ulcer. GENITOURINARY: No dysuria or hematuria. Vital Sign (Last 24 Hours) 06/09/25 06/10/25 06/10/25 20:00 04:00 12:00 Temp 97.9 Pulse 100 Resp 20 B/P (MAP) 123/60 Pulse Ox 96 O2 Delivery Room Air O2 Flow Rate 2.0 FiO2 28 Intake & Output (last 24hrs) 06/09/25 06/09/25 06/10/25 15:00 23:00 07:00 Output Total 100 ml Balance -100 ml LABS: Laboratory: Test 06/10/25 12:39 06/10/25 04:42 06/09/25 04:53 06/08/25 17:40 Range/Units Whole Blood Glucose 115 H 70-110 MG/DL White Blood Count 6.4 4.8-10.8 K/uL Red Blood Count 3.14 L 4.00-5.50 MIL/uL Hemoglobin 9.1 L 12.0-16.0 g/dL Hematocrit 29.2 L 36-48 % Mean Corpuscular Volume 93.0 79-99 fL Mean Corpuscular Hemoglobin 29.0 27.0-33.0 pg Mean Corpuscular Hemoglobin Concent 31.2 L 32.0-36.0 g/dL Red Cell Distribution Width 12.5 11.0-15.5 % Platelet Count 133 130-400 K/uL Mean Platelet Volume 11.0 H 7.5-10.5 fL Immature Granulocyte % (Auto) 0.3 0-1 % Neutrophils (%) (Auto) 74.6 40.0-77.0 % Lymphocytes (%) (Auto) 13.3 L 21.0-51.0 % Monocytes (%) (Auto) 7.4 3.0-13.0 % Eosinophils (%) (Auto) 3.9 0.0-8.0 % Basophils (%) (Auto) 0.5 0.0-5.0 % Neutrophils # (Auto) 4.8 1.8-7.7 K/uL Lymphocytes # (Auto) 0.9 L 1.0-4.8 K/uL Monocytes # (Auto) 0.5 0.1-1.0 K/uL Eosinophils # (Auto) 0.25 0.00-0.70 K/uL Basophils # (Auto) 0.03 0.00-0.20 K/uL Absolute Immature Granulocyte (auto 0.02 0-1 K/uL Nucleated Red Blood Cells 0.0 0.0-0.19 % Sodium Level 140 136-145 mmol/L Potassium Level 3.7 3.5-5.1 mmol/L Chloride Level 107 101-111 mmol/L Carbon Dioxide Level 28 21-32 mmol/L Blood Urea Nitrogen 15 7-18 mg/dL Creatinine 1.4 H 0.5-1.0 mg/dL Glomerular Filtration Rate Calc 39 >90 mL/min Random Glucose 88 70-105 mg/dL Total Calcium 8.1 L 8.5-10.1 mg/dL Total Bilirubin 0.5 0.2-1.0 mg/dL Aspartate Amino Transf (AST/SGOT) 66 H 10-37 U/L Alanine Aminotransferase (ALT/SGPT) 21 # 12-78 U/L Alkaline Phosphatase 50 50-136 U/L Total Creatine Kinase 924 #*H 21-232 U/L Total Protein 6.0 6.0-8.3 g/dL Albumin 2.4 L 3.5-5.0 g/dL Vitamin D 25-Hydroxy 23.1 30.0-100.0 ng/mL Red Blood Cell Morphology See comments Magnesium Level 1.80 1.80-2.40 mg/dL Vitamin B12 Level 277 193-986 pg/mL Thyroid Stimulating Hormone (TSH) 1.17 0.36-3.74 uIU/mL Urine Color LIGHT-YELLOW YELLOW Urine Appearance CLOUDY H CLEAR Urine pH 5.5 5.0-8.0 Urine Specific Kramer 1.013 1.001-1.031 Urine Protein 100 H NEGATIVE mg/dL Urine Glucose (UA) 500 H NEGATIVE mg/dL Urine Ketones NEGATIVE NEGATIVE mg/dL Urine Occult Blood MODERATE H NEGATIVE Urine Nitrate NEGATIVE NEGATIVE Urine Bilirubin NEGATIVE NEGATIVE mg/dL Urine Urobilinogen 0.2 0.2-1.0 mg/dL Urine Leukocyte Esterase 500 H NEGATIVE Yumkio/uL Urine RBC 6-10 H 0-1 /HPF Urine WBC TNTC H 0-1 /HPF Urine Bacteria MANY None Seen /HPF Test 06/08/25 16:06 Range/Units Lactic Acid Level 1.2 0.8-2.5 mmol/L Direct Bilirubin 0.1 0.0-0.3 mg/dL Ammonia < 10 L 11-32 umol/L Troponin I High Sensitivity 18 4-50 ng/L Lipase 26 16-77 U/L DIAGNOSTICS / RADIOLOGY: PATIENT: YOSELIN JAY ACCT: [id number] LOC: [facility] U: [id number] AGE/SX: 74/F ROOM: [facility] RE06/08/[address]: NEEL PACHECO MD : 1950 BED: 1 DIS: STATUS: ADM IN TLOC: SPEC: [id number] JUAN: 06/08/25 STATUS: COMP REQ: [id number] RECD: 06/09/[address]: PITO SMALL MD SOURCE: URINE CATH ENTR: 06/09/[address]: JANAY GAUTAM MD SPDESC: CATHERIZED ORDERED: AERO ID & SENS COMMENTS: NOTIFIED NURSE MERVAT FONSECA ON 06/10/25 AND FAXED TO [facility] Procedure Result Tiburcio Date-Time - AEROBIC ID & SENSITIVITIES Final 06/10/25-726 MRL EXTENDED SPECTRUM BETA-LACTAMASE ORGANISM IDENTIFIED. CRITICAL RESULT WAS CALLED BY SHANIQUE HERRERA ON 06/10/25 AT 0724. CRITICAL VALUES WERE READ BACK AND ACKNOWLEDGED BY MALLY LUCAS AT [facility] [place] [facility] LAB COLONY DESCRIPTION: DAY 1: COLONY COUNT: >100,000 CFU/ML GRAM NEGATIVE RODS IDENTIFICATION AND SENSITIVITY TO FOLLOW DAY 2: NO FURTHER WORK-UP DONE COMMENTS(R): ESBL KLEBSIELLA PNEUMONIAE K PNEUMO M.I.C. RX --------- ---- AZTREONAM >16 ESBL CEFAZOLIN >16 R* CEFTAZIDIME 16 ESBL CEFTAZIDIME/AVIBACTAM <=8 S CEFTRIAXONE >2 ESBL CIPROFLOXACIN >2 R GENTAMICIN >8 R LEVOFLOXACIN >4 R NITROFURANTOIN <=32 S TOBRAMYCIN >8 R MEROPENEM <=1 S PIPERACILLIN/TAZOBACTAM <=8 S TRIMETHOPRIM/SUFLAMETHOXAZOLE >2/38 R ASSESSMENT: Urinary tract infection with Klebsiella pneumoniae. Infection with multidrug resistant organism. Diabetes mellitus. Acute on chronic renal failure. Rhabdomyolysis. Dementia. PLAN: Discontinue ceftriaxone. Start Zosyn 3.375 g IV q.12 hours. Case management to arrange IV antibiotics for 10 days. Continue physical therapy. Thank you for allowing ID to participate in the care of this patient. This case was reviewed and discussed with my supervising physician Dr. Goodrich and the above assessment and plan was formulated and agreed upon. ATTESTATION BY PHYSICIAN I have seen and examined the patient. I reviewed the documentation, medical decision making, and treatment plan as noted by the mid-level provider above. I agree with the findings and plan of care. JEANMARIE GOODRICH MD, MIRTA L [facility] Jun 10, 2025 13:31
--- NOTE | 2025-06-10 14:18 | NUR ---
Discharge Planning: Patient has prompt for SNF. Sister Marianne is insisting on referral to [facility]. CM explained patient's insurance will not approve inpatient rehab. Order is for 10 days of iv abx for positive urine culture. List of SNF's left in patient's room. CM wrote cell # and name on board inpatient's room. [facility] will call CM with choice.
[2025-06-10] MEDS: ZOSYN 3.375GM +NS 50ML IVPB SCH (14:46)
--- NOTE | 2025-06-10 15:53 | PN ---
[facility] PROGRESS NOTE Date of Service: Jun 10, 2025 Time of Service: 15:31 HISTORY OF PRESENT ILLNESS: This is a 74 year old female past medical history of dementia, diabetes type 2, hypertension , hyperlipidemia, paroxysmal atrial fibrillation, peripheral neuropathy, chronic kidney disease, endometrial cancer with hysterectomy, morbid obesity, osteoporosis and Chronic obstructive pulmonary disease who was brought by EMS to the ED for worsening mental status,failure to thrive not tolerating PO and generalized body weakness.As per Sister Marianne who was present at the bedside during my evaluation, patient is not eating and drinking much for several days and patient used to get up to go to the rest room on her own without help today around 5 pm patient suddenly unable to get up and walk and patient is more confused than usual.As per sister patient was also like this yesterday and she called the ambulance and they checked on the patient she said and was told everything was fine and today patient is too weak to get out of bed and she is unable to help her so she decided to bring the patient to the ER for evaluation. Seen and examined patient in the ER awake,alert and pleasantly confused.Patient appears comfortable in no apparent distress she knows her name and where she is.Patient denies chest pain,palpitation and shortness fo breath. Latest vital signs temperature 98.8, heart rate 62, blood pressure 105/45 saturation 100% on room air. Labs: WBC 7, hemoglobin 10, hematocrit 32, Platelet 162. BUN 19, creatinine 1.8, GFR 29 total CK 2895 troponin 18. Urinalysis consistent with urinary tract infection chest x-ray result revealed no acute cardiopulmonary pat hology is evident. SUBJECTIVE: 06/09/25: Patient was seen and evaluated in room 319 along with her sister on bedside. Patient was asleep when we entered the room. After waking up patient was awake, alert and orientedX3. As per patients daughter patient has been not eating and drinking for the last one week and has generalized weakness. Patient is currently on full liquid diet and Diet evaluation was ordered. Pertinent labs- Total C.K- 2895>2571. Urinalysis was done which was positive for urinalysis. 06/10/25: Patient was seen and evaluated in room 319. Patient was awake, alert and not oriented to place or time. Patient symptoms have improved from the prior day. Patient is continuing on full liquid diet. Patient is scheduled for barium swallow and GI was consulted for dysphagia. Pertinent labs- Total C.K- 2895>2571>924. Urine culture came back positive for ESBL K. Pneumonia. Infectious Disease was consulted, will follow their recommendations. REVIEW OF SYSTEMS CONSTITUTIONAL: Denies fevers, chills, or night sweats. No unintentional weight loss reported. NEUROLOGICAL: Denies headache, amaurosis fugax, motor weakness, sensory defic it, vertigo/spinning sensation, gait abnormalities, or tremors. ENT: No hearing loss, otalgia, otorrhea, rhinitis, rhinorrhea, hoarseness, or sore throat. CARDIOVASCULAR: Denies any exertional angina, dyspnea on exertion, orthopnea, paroxysmal nocturnal dyspnea, palpitations, life-threatening arrhythmias, claudication. PULMONARY: Denies any shortness of breath, cough, phlegm/sputum, hemoptysis, pleuritic chest pain. SLEEP: Denies morning headaches, daytime somnolence or napping. Denies difficulty falling asleep, staying asleep, waking from sleep. Denies knowledge of snoring. GASTROINTESTINAL: Denies any type of dysphagia to either liquids or solids. Denies nausea, vomiting, pyrosis, early satiety, abdominal pain, diarrhea, constipation, or changes in stool consistency or caliber. Denies coffee-ground emesis, hematemesis, hematochezia, or melanotic stools. GENITOURINARY: Denies frequency, urgency, nocturia, hematuria or incontinence (Storage/Irritative symptoms.) Low urinary stream, straining to void, urinary intermittency or hesitancy, splitting of the voiding stream, terminal dribbling. ENDOCRINOLOGIC: Denies polyuria, polydipsia, polyphagia or heat/cold intolerances. HEMATOLOGIC: Denies thrombophilia/previous clots, or coagulopathy/bleeding disorders. ONCOLOGIC: Denies personal history of malignancy. DERMATOLOGIC: Denies rashes or pruritus. PSYCHIATRIC: Denies any suicidal or homicidal ideation. Denies hallucinations. PHYSICAL EXAM GENERAL APPEARANCE: The patient is awake, alert, and oriented, in no acute cardiopulmonary distress. NEUROLOGICAL: Cranial nerves II-XII grossly intact. Motor is 5/5 in bilateral upper and lower extremities proximal to distal. No sensory deficits. HEENT: Face is symmetric. Pupils are equal and reactive. Extraocular movements are intact. NECK: Supple. No JVD. No thyromegaly. No submental, submandibular, pre- /postauricular, occipital or supraclavicular lymphadenopathy. CHEST: Normal chest expansion. No Telemetry. LUNGS: Absence of any rales, rhonchi or any wheezing. CARDIOVASCULAR: Regular. S1 and S2 normal. No appreciable rubs, murmurs or gallops. ABDOMEN: Soft, nontender, and nondistended. There is no rebound, voluntary guarding, or rigidity. : Deferred. No [place]. EXTREMITIES: Non-edematous and not cyanotic. No clubbing. Good capillary refill. SKIN: No skin breakdown. Vital Signs (last 8hr) Date Time Temp Pulse Resp B/P (MAP) Pulse Ox O2 Delivery O2 Flow Rate FiO2 06/10/25 12:00 97.9 100 20 123/60 96 Room Air 06/10/25 08:00 97.5 85 20 116/48 94 Room Air LABS: Laboratory: Test 06/10/25 15:18 06/10/25 04:42 06/09/25 04:53 06/08/25 17:40 Range/Units Whole Blood Glucose 177 #H 70-110 MG/DL White Blood Count 6.4 4.8-10.8 K/uL Red Blood Count 3.14 L 4.00-5.50 MIL/uL Hemoglobin 9.1 L 12.0-16.0 g/dL Hematocrit 29.2 L 36-48 % Mean Corpuscular Volume 93.0 79-99 fL Mean Corpuscular Hemoglobin 29.0 27.0-33.0 pg Mean Corpuscular Hemoglobin Concent 31.2 L 32.0-36.0 g/dL Red Cell Distribution Width 12.5 11.0-15.5 % Platelet Count 133 130-400 K/uL Mean Platelet Volume 11.0 H 7.5-10.5 fL Immature Granulocyte % (Auto) 0.3 0-1 % Neutrophils (%) (Auto) 74.6 40.0-77.0 % Lymphocytes (%) (Auto) 13.3 L 21.0-51.0 % Monocytes (%) (Auto) 7.4 3.0-13.0 % Eosinophils (%) (Auto) 3.9 0.0-8.0 % Basophils (%) (Auto) 0.5 0.0-5.0 % Neutrophils # (Auto) 4.8 1.8-7.7 K/uL Lymphocytes # (Auto) 0.9 L 1.0-4.8 K/uL Monocytes # (Auto) 0.5 0.1-1.0 K/uL Eosinophils # (Auto) 0.25 0.00-0.70 K/uL Basophils # (Auto) 0.03 0.00-0.20 K/uL Absolute Immature Granulocyte (auto 0.02 0-1 K/uL Nucleated Red Blood Cells 0.0 0.0-0.19 % Sodium Level 140 136-145 mmol/L Potassium Level 3.7 3.5-5.1 mmol/L Chloride Level 107 101-111 mmol/L Carbon Dioxide Level 28 21-32 mmol/L Blood Urea Nitrogen 15 7-18 mg/dL Creatinine 1.4 H 0.5-1.0 mg/dL Glomerular Filtration Rate Calc 39 >90 mL/min Random Glucose 88 70-105 mg/dL Total Calcium 8.1 L 8.5-10.1 mg/dL Total Bilirubin 0.5 0.2-1.0 mg/dL Aspartate Amino Transf (AST/SGOT) 66 H 10-37 U/L Alanine Aminotransferase (ALT/SGPT) 21 # 12-78 U/L Alkaline Phosphatase 50 50-136 U/L Total Creatine Kinase 924 #*H 21-232 U/L Total Protein 6.0 6.0-8.3 g/dL Albumin 2.4 L 3.5-5.0 g/dL Vitamin D 25-Hydroxy 23.1 30.0-100.0 ng/mL Red Blood Cell Morphology See comments Magnesium Level 1.80 1.80-2.40 mg/dL Vitamin B12 Level 277 193-986 pg/mL Thyroid Stimulating Hormone (TSH) 1.17 0.36-3.74 uIU/mL Urine Color LIGHT-YELLOW YELLOW Urine Appearance CLOUDY H CLEAR Urine pH 5.5 5.0-8.0 Urine Specific [place] 1.013 1.001-1.031 Urine Protein 100 H NEGATIVE mg/dL Urine Glucose (UA) 500 H NEGATIVE mg/dL Urine Ketones NEGATIVE NEGATIVE mg/dL Urine Occult Blood MODERATE H NEGATIVE Urine Nitrate NEGATIVE NEGATIVE Urine Bilirubin NEGATIVE NEGATIVE mg/dL Urine Urobilinogen 0.2 0.2-1.0 mg/dL Urine Leukocyte Esterase 500 H NEGATIVE [place]/uL Urine RBC 6-10 H 0-1 /HPF Urine WBC TNTC H 0-1 /HPF Urine Bacteria MANY None Seen /HPF Test 06/08/25 16:06 Range/Units Lactic Acid Level 1.2 0.8-2.5 mmol/L Direct Bilirubin 0.1 0.0-0.3 mg/dL Ammonia < 10 L 11-32 umol/L Troponin I High Sensitivity 18 4-50 ng/L Lipase 26 16-77 U/L Current Medications Medications (Trade) Dose Ordered Sig/Cindy Route PRN Reason Start Time Stop Time Status Last Admin Dose Admin Acetaminophen (TYLenol 325MG TAB) 650 mg Q4H PRN PO MILD PAIN (1-3) 06/08/25 20:00 07/08/25 19:59 Acetaminophen (TYLenol 325MG TAB) 650 mg Q6H PRN PO TEMPERATURE GREATER THAN 101.5 06/08/25 20:00 07/08/25 19:59 Acetaminophen/ Codeine Phosphate (TYLenol-coDEINE TAB) 1 tab Q6H PRN PO MODERATE PAIN (4-6) 06/09/25 10:00 07/09/25 09:59 Ceftriaxone Sodium 1 gm/ Sodium Chloride 50 ml @ 100 mls/hr Q24H IV 06/08/25 20:00 06/08/25 20:03 DC Ceftriaxone Sodium (ROCEphine 1G INJ) 1 gm Q24H IVPB 06/08/25 20:30 06/10/25 13:28 DC 06/09/25 19:38 1 GM Famotidine (Pepcid 20mg Tab) 20 mg DAILY PO 06/09/25 09:00 07/09/25 08:59 06/10/25 09:07 20 MG Magnesium Sulfate 50 ml @ 0 mls/hr PROTOCOL PRN IV PRN 06/09/25 10:00 07/09/25 09:59 Ondansetron HCl (zoFRAN 4MG INJ) 4 mg Q6H PRN IV NAUSEA/VOMITING 06/08/25 20:00 07/08/25 19:59 Piperacillin Sod/ Tazobactam Sod (Zosyn 3.375gm+NS 50ml) 3.375 gm Q12H IVPB 06/10/25 13:30 06/20/25 13:29 06/10/25 14:46 3.375 GM Potassium Chloride 100 ml @ 100 mls/hr AD PRN IV POTASSIUM PROTOCOL 06/09/25 10:00 07/09/25 09:59 Potassium Chloride (K-Dur/Klor-Con 20meq) 20 meq AD PRN PO POTASSIUM PROTOCOL 06/09/25 10:00 07/09/25 09:59 Potassium Chloride (KCl 10% Elixir 20meq/15ml) 20 meq AD PRN PO POTASSIUM PROTOCOL 06/09/25 10:00 07/09/25 09:59 Sodium Chloride 1,000 ml @ 100 mls/hr Q10H IV 06/08/25 20:00 07/08/25 19:59 06/09/25 05:17 100 MLS/HR DIAGNOSTICS / RADIOLOGY: [ ] ASSESSMENT: Acute rhabdomyolysis POA Failure to thrive POA Functional decline POA Acute metabolic encephalopathy versus worsening dementia POA Acute urinary tract infection POA Acute kidney injury on chronic kidney disease POA Acute anemia POA Diabetes POA Hypertension POA Hyperlipidemia POA PLAN: Acute rhabdomyolysis POA * Pertinent labs Total C.K- 2895>2571>924. BUN 19>17>15. Creatinine 1.8>1.7>1.4 * Patient is on IV hydration with 0.9% NACL with 100ml at 100ml/hr. * Will monitor daily CK levels * Will monitor daily labs. * Will monitor with daily I&O Acute metabolic encephalopathy versus worsening dementia POA * Vitamin B12-277, TSH-1.17, Ammonia <10 * Urinalysis was ordered, results were positive for UTI * Urine culture was positive for ESBL K. Pneumonia. with sensitivity to Meropenem, Aztreonam and Zosyn. * Infectious diseases was consulted, will follow their recommendations. * Patient was started on Zosyn (day1). * Will monitor with daily metabolic panel. Acute urinary tract infection POA * Urinalysis was ordered, results were positive for UTI, positive for occult blood, Protein (100) glucose (500), Leukocyte esterase -500 WBC- TNTC, RBC 6- 10 * Urine culture was positive for ESBL K. Pneumonia. with sensitivity to Meropenem, Aztreonam and Zosyn. * Infectious diseases was consulted, will follow their recommendations. * Patient was started on Zosyn (day1). Failure to thrive POA * Patient is currently on full liquid diet, will advanced diet as tolerated. * Ordered dietary consultation to assess malnutrition Supportive measures: GI prophylaxis with famotidine 20 mg p.o. DVT prophylaxis with SCD's ATTESTATION BY PHYSICIAN I have seen and examined the patient. I reviewed the documentation, medical decision making, and treatment plan as noted by the resident physician above. I agree with the findings and plan of care. NEEL PACHECO MD, SHAJI MD Jun 10, 2025 15:53
--- NOTE | 2025-06-10 18:23 | CONS ---
GASTROENTEROLOGY CONSULTATION NOTE Date of Consultation: Jun 10, 2025 Time of Consultation: 18:16 History of Present Illness: [74-year-old female past medical history for dementia, type 2 diabetes, hypertension, hyperlipidemia, paroxysmal atrial fibrillation, peripheral neuropathy, chronic in six, endometrial cancer with hysterectomy, morbid obesity, osteoporosis, and COPD who was brought via EMS to the emergency room with worsening mental status, failure to thrive, now tolerating p.o. intake. Were consulted for dysphagia, failure to thrive. WBC of 6.4, hemoglobin 9.1, platelets 133. Creatinine 1.4, calcium 8.1, total bilirubin of 0.5, AST 66, ALT and alkaline phosphatase are normal. Albumin 2.4, total creatinine kinase of 924. Chest x-ray showing no acute cardiopulmonary pathology. Patient pending barium swallow study. On exam, patient is awake, alert,and oriented x 3 in no acute distress. Her respirations are unlabored. BBS are clear. Abdomen is soft and not distended. Active BS present. Recommendations for EGD given. Patient and sisters who are at bedside agreed to exam. ] Review of Systems: CONSTITUTIONAL: No malaise or change in sensation of wellbeing. ENMT: No rhinorrhea, otorrhea, sinus pain, ear ache. CARDIOVASCULAR: No angina, palpitations, orthopnea or paroxysmal dyspnea. RESPIRATORY: No SOB. GASTROINTESTINAL: No abdominal pain, nausea, vomiting, diarrhea, hematemesis, melena or change in the patient's habitual bowel movements consistency/number. GENITOURINARY: No dysuria, hematuria or change in bladder continence. MUSCULOSKELETAL: No new muscle pain or decrease in muscular strength. No new joint swelling, redness or tenderness. SKIN: No new rash. Past Medical History: [Hysterectomy, bilateral knee replacement, ] PAST SOCIAL HISTORY: [Patient lives with sister. Patient denies alcohol tobacco and recreational drug use ] FAMILY HISTORY: [ Hypertension, diabetes, stroke and cardiovascular disease ] Coded Allergies: No Known Allergies (Unverified Allergy, Unknown, 12/30/22) Physical Exam: GEN: Awake, alert, oriented in person, time and place, and in no acute distress. HEENT: No rhinorrhea. Oral mucosa is pink, moist and within normal limits. CHEST: Lung auscultation revealed normal breath sounds bilaterally. CARDIAC:Heart sounds are regular. ABD: Soft, non-tender and not distended. No peritoneal signs on palpation. Normal bowel sounds. EXT: No cyanosis or clubbing. No edema. SKIN: Intact. No rashes. NEURO: Alert and oriented to name, place and person.No focal motor deficits. Normal speech. Vital Sign (Last 24 Hours) 06/10/25 06/10/25 16:00 18:04 Temp 97.5 Pulse 83 Resp 20 B/P (MAP) 120/51 Pulse Ox 93 O2 Delivery Room Air* O2 Flow Rate 0 FiO2 21 Intake & Output (last 24hrs) 06/09/25 06/09/25 06/10/25 15:00 23:00 07:00 Output Total 100 ml Balance -100 ml Laboratory: [ ] Laboratory: Test 06/10/25 15:18 06/10/25 04:42 06/09/25 04:53 Range/Units Whole Blood Glucose 177 #H 70-110 MG/DL White Blood Count 6.4 4.8-10.8 K/uL Red Blood Count 3.14 L 4.00-5.50 MIL/uL Hemoglobin 9.1 L 12.0-16.0 g/dL Hematocrit 29.2 L 36-48 % Mean Corpuscular Volume 93.0 79-99 fL Mean Corpuscular Hemoglobin 29.0 27.0-33.0 pg Mean Corpuscular Hemoglobin Concent 31.2 L 32.0-36.0 g/dL Red Cell Distribution Width 12.5 11.0-15.5 % Platelet Count 133 130-400 K/uL Mean Platelet Volume 11.0 H 7.5-10.5 fL Immature Granulocyte % (Auto) 0.3 0-1 % Neutrophils (%) (Auto) 74.6 40.0-77.0 % Lymphocytes (%) (Auto) 13.3 L 21.0-51.0 % Monocytes (%) (Auto) 7.4 3.0-13.0 % Eosinophils (%) (Auto) 3.9 0.0-8.0 % Basophils (%) (Auto) 0.5 0.0-5.0 % Neutrophils # (Auto) 4.8 1.8-7.7 K/uL Lymphocytes # (Auto) 0.9 L 1.0-4.8 K/uL Monocytes # (Auto) 0.5 0.1-1.0 K/uL Eosinophils # (Auto) 0.25 0.00-0.70 K/uL Basophils # (Auto) 0.03 0.00-0.20 K/uL Absolute Immature Granulocyte (auto 0.02 0-1 K/uL Nucleated Red Blood Cells 0.0 0.0-0.19 % Sodium Level 140 136-145 mmol/L Potassium Level 3.7 3.5-5.1 mmol/L Chloride Level 107 101-111 mmol/L Carbon Dioxide Level 28 21-32 mmol/L Blood Urea Nitrogen 15 7-18 mg/dL Creatinine 1.4 H 0.5-1.0 mg/dL Glomerular Filtration Rate Calc 39 >90 mL/min Random Glucose 88 70-105 mg/dL Total Calcium 8.1 L 8.5-10.1 mg/dL Total Bilirubin 0.5 0.2-1.0 mg/dL Aspartate Amino Transf (AST/SGOT) 66 H 10-37 U/L Alanine Aminotransferase (ALT/SGPT) 21 # 12-78 U/L Alkaline Phosphatase 50 50-136 U/L Total Creatine Kinase 924 #*H 21-232 U/L Total Protein 6.0 6.0-8.3 g/dL Albumin 2.4 L 3.5-5.0 g/dL Vitamin D 25-Hydroxy 23.1 30.0-100.0 ng/mL Red Blood Cell Morphology See comments Magnesium Level 1.80 1.80-2.40 mg/dL Vitamin B12 Level 277 193-986 pg/mL Thyroid Stimulating Hormone (TSH) 1.17 0.36-3.74 uIU/mL Current Medications Medications (Trade) Dose Ordered Sig/Cindy Route PRN Reason Start Time Stop Time Status Last Admin Dose Admin Acetaminophen (TYLenol 325MG TAB) 650 mg Q4H PRN PO MILD PAIN (1-3) 06/08/25 20:00 07/08/25 19:59 Acetaminophen (TYLenol 325MG TAB) 650 mg Q6H PRN PO TEMPERATURE GREATER THAN 101.5 06/08/25 20:00 07/08/25 19:59 Acetaminophen/ Codeine Phosphate (TYLenol-coDEINE TAB) 1 tab Q6H PRN PO MODERATE PAIN (4-6) 06/09/25 10:00 07/09/25 09:59 Ceftriaxone Sodium 1 gm/ Sodium Chloride 50 ml @ 100 mls/hr Q24H IV 06/08/25 20:00 06/08/25 20:03 DC Ceftriaxone Sodium (ROCEphine 1G INJ) 1 gm Q24H IVPB 06/08/25 20:30 06/10/25 13:28 DC 06/09/25 19:38 1 GM Famotidine (Pepcid 20mg Tab) 20 mg DAILY PO 06/09/25 09:00 07/09/25 08:59 06/10/25 09:07 20 MG Magnesium Sulfate 50 ml @ 0 mls/hr PROTOCOL PRN IV PRN 06/09/25 10:00 07/09/25 09:59 Ondansetron HCl (zoFRAN 4MG INJ) 4 mg Q6H PRN IV NAUSEA/VOMITING 06/08/25 20:00 07/08/25 19:59 Piperacillin Sod/ Tazobactam Sod (Zosyn 3.375gm+NS 50ml) 3.375 gm Q12H IVPB 06/10/25 13:30 06/20/25 13:29 06/10/25 14:46 3.375 GM Potassium Chloride 100 ml @ 100 mls/hr AD PRN IV POTASSIUM PROTOCOL 06/09/25 10:00 07/09/25 09:59 Potassium Chloride (K-Dur/Klor-Con 20meq) 20 meq AD PRN PO POTASSIUM PROTOCOL 06/09/25 10:00 07/09/25 09:59 Potassium Chloride (KCl 10% Elixir 20meq/15ml) 20 meq AD PRN PO POTASSIUM PROTOCOL 06/09/25 10:00 07/09/25 09:59 Sodium Chloride 1,000 ml @ 100 mls/hr Q10H IV 06/08/25 20:00 07/08/25 19:59 06/09/25 05:17 100 MLS/HR Diagnostics / Radiology: [COPY/PASTE HERE IF NO REPORTS PLEASE DELETE SECTION] Assessment: [ Dysphagia Failure to thrive Dementia Type 2 Diabetes Hypertension ] Plan: [ Case discussed with Dr. Ruelas Plan for EGD in am NPO after midnight Please call with questions, concerns, and change in clinical status. Thank you for this consult ] VIRGINIA AGARWAL Jun 10, 2025 18:23
[2025-06-11] VITALS (19 sets, daily range): BP systolic 97–146; BP diastolic 50–76; PULSE 81–117; RESP 17–24; TEMP 97.4–98.2; O2SAT 96
[2025-06-11 04:49] LABS: IMMATURE GRANULOCYTE ABSOLUTE 0.05 K/uL (0-1); NUCLEATED RED BLOOD CELLS 0.0 % (0.0-0.19); PLATELET COUNT (AUTO) 132 K/uL (130-400); RED BLOOD CELL COUNT(AUTO) 3.29 MIL/uL (4.00-5.50); RED CELL DISTRIBUTION WIDTH 12.3 % (11.0-15.5); WHITE BLOOD COUNT (AUTO) 6.3 K/uL (4.8-10.8)
[2025-06-11 05:14] LABS: ASPARTATE AMINOTRANSFERASE 51.0 U/L (10-37); CREATININE 1.3 mg/dL (0.5-1.0); GLOMERULAR FILTR. RATE CALC 43.0 mL/min (>90); GLUCOSE,RANDOM 96.0 mg/dL (70-105); SODIUM SERUM 140.0 mmol/L (136-145); TOTAL PROTEIN, SERUM 6.2 g/dL (6.0-8.3); UREA NITROGEN, BLOOD 15.0 mg/dL (7-18)
[2025-06-11 05:17] LABS: CREATINE KINASE, TOTAL 463.0 U/L (21-232)
--- NOTE | 2025-06-11 07:53 | PN ---
Subjective Review of Systems PROGRESS NOTE Date of Visit: Jun 11, 2025 Time of Visit: 07:53 Events since last encounter WEAKNESS AND DECREASED PO INTAKE Subjective PATIENT RESTING IN BED General: No Fever, No Chills, No Night Sweats, No Fatigue, No Malaise, No Appetite, No Other HEENT: No Head Aches, No Visual Changes, No Eye Pain, No Ear Pain, No Dysphasia, No Sinus Congestion, No Post Nasal Drip, No Sore Throat, No Other Pulmonary: No Dyspnea, No Cough, No Pleuritic Chest Pain, No Other Cardiovascular: No: Chest Pain, Palpitations, Orthopnea, Paroxysmal Noc. Dyspnea, Edema, Lt Headedness, Other Gastrointestinal: Abdominal Pain; No: Nausea, Vomiting, Diarrhea, Constipation, Melena, Hematochezia, Other Genitourinary: No Dysuria, No Frequency, No Incontinence, No Hematuria, No Retention, No Other Musculoskeletal: No: other, neck pain, shoulder pain, arm pain, back pain, hand pain, leg pain, foot pain Skin: No Urticaria, No Rash, No Other Neurological: No: Weakness, Numbness, Incoordination, Change in speech, Confusion, Seizures, Other Objective Vitals and I/O Vital Sign (Last 24 Hours) 06/10/25 06/11/25 20:00 04:02 Temp 98.2 Pulse 84 Resp 20 B/P (MAP) 122/56 Pulse Ox 98 O2 Delivery Room Air O2 Flow Rate 0 FiO2 21 Intake & Output (last 24hrs) 06/10/25 06/10/25 06/11/25 15:00 23:00 07:00 Output Total 590 ml Balance -590 ml General: Alert, Oriented X3 HEENT: Atraumatic, PERRLA Neck: Supple Lungs: Clear to auscultation Heart: Regular rate Abdomen: Normal bowel sounds Extremities: No clubbing, No cyanosis, No edema Skin: No rashes, No breakdown Neuro: Normal tone, Sensation intact Psych/Mental Status: Mental status NL, Thoughts/Content NL Results RADIOLOGY: [] EKG: [] Laboratory Tests Test 06/10/25 12:39 06/10/25 15:18 06/10/25 19:47 06/11/25 04:38 Whole Blood Glucose 115 MG/DL (70-110) H 177 MG/DL (70-110) #H 98 MG/DL (70-110) White Blood Count 6.3 K/uL (4.8-10.8) Red Blood Count 3.29 MIL/uL (4.00-5.50) L Hemoglobin 9.7 g/dL (12.0-16.0) L Hematocrit 30.1 % (36-48) L Mean Corpuscular Volume 91.5 fL (79-99) Mean Corpuscular Hemoglobin 29.5 pg (27.0-33.0) Mean Corpuscular Hemoglobin Concent 32.2 g/dL (32.0-36.0) Red Cell Distribution Width 12.3 % (11.0-15.5) Platelet Count 132 K/uL (130-400) Mean Platelet Volume 11.1 fL (7.5-10.5) H Immature Granulocyte % (Auto) 0.8 % (0-1) Neutrophils (%) (Auto) 74.1 % (40.0-77.0) Lymphocytes (%) (Auto) 14.7 % (21.0-51.0) L Monocytes (%) (Auto) 7.9 % (3.0-13.0) Eosinophils (%) (Auto) 2.2 % (0.0-8.0) Basophils (%) (Auto) 0.3 % (0.0-5.0) Neutrophils # (Auto) 4.7 K/uL (1.8-7.7) Lymphocytes # (Auto) 0.9 K/uL (1.0-4.8) L Monocytes # (Auto) 0.5 K/uL (0.1-1.0) Eosinophils # (Auto) 0.14 K/uL (0.00-0.70) Basophils # (Auto) 0.02 K/uL (0.00-0.20) Absolute Immature Granulocyte (auto 0.05 K/uL (0-1) Nucleated Red Blood Cells 0.0 % (0.0-0.19) Sodium Level 140 mmol/L (136-145) Potassium Level 3.8 mmol/L (3.5-5.1) Chloride Level 104 mmol/L (101-111) Carbon Dioxide Level 27 mmol/L (21-32) Blood Urea Nitrogen 15 mg/dL (7-18) Creatinine 1.3 mg/dL (0.5-1.0) H Glomerular Filtration Rate Calc 43 mL/min (>90) Random Glucose 96 mg/dL (70-105) Total Calcium 8.0 mg/dL (8.5-10.1) L Total Bilirubin 0.8 mg/dL (0.2-1.0) # Aspartate Amino Transf (AST/SGOT) 51 U/L (10-37) H Alanine Aminotransferase (ALT/SGPT) 23 U/L (12-78) Alkaline Phosphatase 57 U/L (50-136) Total Creatine Kinase 463 U/L (21-232) #*H Total Protein 6.2 g/dL (6.0-8.3) Albumin 2.5 g/dL (3.5-5.0) L Test 06/11/25 05:33 Whole Blood Glucose 109 MG/DL (70-110) Medications Current Medications Acetaminophen 650 mg Q6H PRN PO; Start 06/08/25 at 20:00; Stop 07/08/25 at 19:59 Acetaminophen 650 mg Q4H PRN PO; Start 06/08/25 at 20:00; Stop 07/08/25 at 19:59 Ondansetron HCl 4 mg Q6H PRN IV; Start 06/08/25 at 20:00; Stop 07/08/25 at 19:59 Famotidine 20 mg DAILY PO Last administered on 06/10/25at 09:07; Start 06/09/25 at 09:00; Stop 07/09/25 at 08:59 Sodium Chloride 1,000 ml @ 100 mls/hr Q10H IV Last administered on 06/10/25at 21:48; Start 06/08/25 at 20:00; Stop 07/08/25 at 19:59 Ceftriaxone Sodium 1 gm/ Sodium Chloride 50 ml @ 100 mls/hr Q24H IV; Start 06/08/25 at 20:00; Stop 06/08/25 at 20:03; Status DC Ceftriaxone Sodium 1 gm Q24H IVPB Last administered on 06/09/25at 19:38; Start 06/08/25 at 20:30; Stop 06/10/25 at 13:28; Status DC Potassium Chloride 100 ml @ 100 mls/hr AD PRN IV; Start 06/09/25 at 10:00; Stop 07/09/25 at 09:59 Potassium Chloride 20 meq AD PRN PO; Start 06/09/25 at 10:00; Stop 07/09/25 at 09:59 Potassium Chloride 20 meq AD PRN PO; Start 06/09/25 at 10:00; Stop 07/09/25 at 09:59 Magnesium Sulfate 50 ml @ 0 mls/hr PROTOCOL PRN IV; Start 06/09/25 at 10:00; Stop 07/09/25 at 09:59 Acetaminophen/ Codeine Phosphate 1 tab Q6H PRN PO; Start 06/09/25 at 10:00; S top 07/09/25 at 09:59 Piperacillin Sod/ Tazobactam Sod 3.375 gm Q12H IVPB Last administered on 06/11/25at 00:49; Start 06/10/25 at 13:30; Stop 06/20/25 at 13:29 Assessment/Plan ASSESSMENT: THIS IS A 74 YR OLD WOMAN WITH HISTORY OF DEMENTIA HTN HYPERLIPIDEMIA SHE PRESENTED WITH UTI/KLEBSIELLA - MULTI DRUG RESISTANT RHABDOMYOLYSIS DECONDITIONING DECREASED NUTRITIONAL INTAKE PLAN: CONT IVF AND WEAN TOLERATED CONT IV ZOSYN BASED ON SENSITIVITIES SUPPLEMENT ELECTROLYTES INC DIET AND REHAB TOLERATED WITH P.T. FOLLOW RENAL FN AND IMPROVED H2B FOR STRESS ULCER PROPHYLAXIS LOVENOX TEDS AND SCD FOR DVT PROPHYLAXIS DISCUSSED WITH PATIENT AND SISTER REQUESTING SNF PLACEMENT FOR REHAB CASE MANAGEMENT CONSULTED DECREASED PO INTAKE AND DISCUSSED CONSIDERATION OF PEG FOR ADDITIONAL NUTRITION BUT SISTER AND PATIENT PREFER NOT TO PURSUE WILL CONTINUE WITH CONSERVATIVE MEASURES NUTRITIONAL INTAKE WITH SUPPLEMENTS JANAY GAUTAM MD Jun 11, 2025 07:53
[2025-06-11] MEDS ORDERED: TRIAMCINOLONE ACET TP PRN (09:30)
[2025-06-11] MEDS ORDERED: LIDOCAINE PF 100MG/5ML (2%) SYRINGE 5ML ONE (11:52)
--- NOTE | 2025-06-11 14:24 | PN ---
[facility] PROGRESS NOTE Date of Service: Jun 11, 2025 Time of Service: 14:19 HISTORY OF PRESENT ILLNESS: This is a 74 year old female past medical history of dementia, diabetes type 2, hypertension , hyperlipidemia, paroxysmal atrial fibrillation, peripheral neuropathy, chronic kidney disease, endometrial cancer with hysterectomy, morbid obesity, osteoporosis and Chronic obstructive pulmonary disease who was brought by EMS to the ED for worsening mental status,failure to thrive not tolerating PO and generalized body weakness.As per Sister Marianne who was present at the bedside during my evaluation, patient is not eating and drinking much for several days and patient used to get up to go to the rest room on her own without help today around 5 pm patient suddenly unable to get up and walk and patient is more confused than usual.As per sister patient was also like this yesterday and she called the ambulance and they checked on the patient she said and was told everything was fine and today patient is too weak to get out of bed and she is unable to help her so she decided to bring the patient to the ER for evaluation. Seen and examined patient in the ER awake,alert and pleasantly confused.Patient appears comfortable in no apparent distress she knows her name and where she is.Patient denies chest pain,palpitation and shortness fo breath. Latest vital signs temperature 98.8, heart rate 62, blood pressure 105/45 saturation 100% on room air. Labs: WBC 7, hemoglobin 10, hematocrit 32, Platelet 162. BUN 19, creatinine 1.8, GFR 29 total CK 2895 troponin 18. Urinalysis consistent with urinary tract infection chest x-ray result revealed no acute cardiopulmonary pat hology is evident. SUBJECTIVE: 06/09/25: Patient was seen and evaluated in room 319 along with her sister on bedside. Patient was asleep when we entered the room. After waking up patient was awake, alert and orientedX3. As per patients daughter patient has been not eating and drinking for the last one week and has generalized weakness. Patient is currently on full liquid diet and Diet evaluation was ordered. Pertinent labs- Total C.K- 2895>2571. Urinalysis was done which was positive for urinalysis. 06/10/25: Patient was seen and evaluated in room 319. Patient was awake, alert and not oriented to place or time. Patient symptoms have improved from the prior day. Patient is continuing on full liquid diet. Patient is scheduled for barium swallow and GI was consulted for dysphagia. Pertinent labs- Total C.K- 2895>2571>924. Urine culture came back positive for ESBL K. Pneumonia. Infectious Disease was consulted, will follow their recommendations. 06/11/25: Patient was seen and evaluated in room 319. Patient was awake, alert and not oriented to place or time. Patient is hemodynamically stable. GI was consulted and recommended doing a EGD for dysphagia. Pertinent labs- Total C.K- 2895>2571>924>463. Urine culture came back positive for ESBL K. Pneumonia. Infectious Disease started the patient on Zosyn3.375mg. REVIEW OF SYSTEMS CONSTITUTIONAL: Denies fevers, chills, or night sweats. No unintentional weight loss reported. NEUROLOGICAL: Denies headache, amaurosis fugax, motor weakness, sensory deficit, vertigo/spinning sensation, gait abnormalities, or tremors. ENT: No hearing loss, otalgia, otorrhea, rhinitis, rhinorrhea, hoarseness, or sore throat. CARDIOVASCULAR: Denies any exertional angina, dyspnea on exertion, orthopnea, paroxysmal nocturnal dyspnea, palpitations, life-threatening arrhythmias, claudication. PULMONARY: Denies any shortness of breath, cough, phlegm/sputum, hemoptysis, pleuritic chest pain. SLEEP: Denies morning headaches, daytime somnolence or napping. Denies difficulty falling asleep, staying asleep, waking from sleep. Denies knowledge of snoring. GASTROINTESTINAL: Denies any type of dysphagia to either liquids or solids. Denies nausea, vomiting, pyrosis, early satiety, abdominal pain, diarrhea, constipation, or changes in stool consistency or caliber. Denies coffee-ground emesis, hematemesis, hematochezia, or melanotic stools. GENITOURINARY: Denies frequency, urgency, nocturia, hematuria or incontinence (Storage/Irritative symptoms.) Low urinary stream, straining to void, urinary intermittency or hesitancy, splitting of the voiding stream, terminal dribbling. ENDOCRINOLOGIC: Denies polyuria, polydipsia, polyphagia or heat/cold intolerances. HEMATOLOGIC: Denies thrombophilia/previous clots, or coagulopathy/bleeding disorders. ONCOLOGIC: Denies personal history of malignancy. DERMATOLOGIC: Denies rashes or pruritus. PSYCHIATRIC: Denies any suicidal or homicidal ideation. Denies hallucinations. PHYSICAL EXAM GENERAL APPEARANCE: The patient is awake, alert, and oriented, in no acute cardiopulmonary distress. NEUROLOGICAL: Cranial nerves II-XII grossly intact. Motor is 5/5 in bilateral upper and lower extremities proximal to distal. No sensory deficits. HEENT: Face is symmetric. Pupils are equal and reactive. Extraocular movements are intact. NECK: Supple. No JVD. No thyromegaly. No submental, submandibular, pre- /postauricular, occipital or supraclavicular lymphadenopathy. CHEST: Normal chest expansion. No Telemetry. LUNGS: Absence of any rales, rhonchi or any wheezing. CARDIOVASCULAR: Regular. S1 and S2 normal. No appreciable rubs, murmurs or gallops. ABDOMEN: Soft, nontender, and nondistended. There is no rebound, voluntary guarding, or rigidity. : Deferred. No Norton. EXTREMITIES: Non-edematous and not cyanotic. No clubbing. Good capillary refill. SKIN: No skin breakdown. Vital Signs (last 8hr) Date Time Temp Pulse Resp B/P (MAP) Pulse Ox O2 Delivery O2 Flow Rate FiO2 06/11/25 12:35 98.1 95 20 120/54 97 Room Air 06/11/25 12:30 96 20 116/54 96 Room Air 06/11/25 12:25 96 20 117/54 97 Room Air 06/11/25 12:20 95 20 110/54 97 Room Air 06/11/25 12:15 91 18 104/51 98 Room Air 06/11/25 12:10 93 18 101/50 100 Nonrebreathing Mask 3.0 06/11/25 12:05 97.9 86 17 97/55 100 Nonrebreathing Mask 3.0 06/11/25 11:53 Mask 10.0 06/11/25 11:53 Mask 06/11/25 08:00 98.2 81 18 127/60 98 Room Air LABS: Laboratory: Test 06/11/25 05:33 06/11/25 04:38 06/10/25 04:42 Range/Units Whole Blood Glucose 109 70-110 MG/DL White Blood Count 6.3 4.8-10.8 K/uL Red Blood Count 3.29 L 4.00-5.50 MIL/uL Hemoglobin 9.7 L 12.0-16.0 g/dL Hematocrit 30.1 L 36-48 % Mean Corpuscular Volume 91.5 79-99 fL Mean Corpuscular Hemoglobin 29.5 27.0-33.0 pg Mean Corpuscular Hemoglobin Concent 32.2 32.0-36.0 g/dL Red Cell Distribution Width 12.3 11.0-15.5 % Platelet Count 132 130-400 K/uL Mean Platelet Volume 11.1 H 7.5-10.5 fL Immature Granulocyte % (Auto) 0.8 0-1 % Neutrophils (%) (Auto) 74.1 40.0-77.0 % Lymphocytes (%) (Auto) 14.7 L 21.0-51.0 % Monocytes (%) (Auto) 7.9 3.0-13.0 % Eosinophils (%) (Auto) 2.2 0.0-8.0 % Basophils (%) (Auto) 0.3 0.0-5.0 % Neutrophils # (Auto) 4.7 1.8-7.7 K/uL Lymphocytes # (Auto) 0.9 L 1.0-4.8 K/uL Monocytes # (Auto) 0.5 0.1-1.0 K/uL Eosinophils # (Auto) 0.14 0.00-0.70 K/uL Basophils # (Auto) 0.02 0.00-0.20 K/uL Absolute Immature Granulocyte (auto 0.05 0-1 K/uL Nucleated Red Blood Cells 0.0 0.0-0.19 % Sodium Level 140 136-145 mmol/L Potassium Level 3.8 3.5-5.1 mmol/L Chloride Level 104 101-111 mmol/L Carbon Dioxide Level 27 21-32 mmol/L Blood Urea Nitrogen 15 7-18 mg/dL Creatinine 1.3 H 0.5-1.0 mg/dL Glomerular Filtration Rate Calc 43 >90 mL/min Random Glucose 96 70-105 mg/dL Total Calcium 8.0 L 8.5-10.1 mg/dL Total Bilirubin 0.8 # 0.2-1.0 mg/dL Aspartate Amino Transf (AST/SGOT) 51 H 10-37 U/L Alanine Aminotransferase (ALT/SGPT) 23 12-78 U/L Alkaline Phosphatase 57 50-136 U/L Total Creatine Kinase 463 #*H 21-232 U/L Total Protein 6.2 6.0-8.3 g/dL Albumin 2.5 L 3.5-5.0 g/dL Vitamin D 25-Hydroxy 23.1 30.0-100.0 ng/mL Current Medications Medications (Trade) Dose Ordered Sig/Cindy Route PRN Reason Start Time Stop Time Status Last Admin Dose Admin Acetaminophen (TYLenol 325MG TAB) 650 mg Q4H PRN PO MILD PAIN (1-3) 06/08/25 20:00 07/08/25 19:59 Acetaminophen (TYLenol 325MG TAB) 650 mg Q6H PRN PO TEMPERATURE GREATER THAN 101.5 06/08/25 20:00 07/08/25 19:59 Acetaminophen/ Codeine Phosphate (TYLenol-coDEINE TAB) 1 tab Q6H PRN PO MODERATE PAIN (4-6) 06/09/25 10:00 07/09/25 09:59 Ceftriaxone Sodium 1 gm/ Sodium Chloride 50 ml @ 100 mls/hr Q24H IV 06/08/25 20:00 06/08/25 20:03 DC Ceftriaxone Sodium (ROCEphine 1G INJ) 1 gm Q24H IVPB 06/08/25 20:30 06/10/25 13:28 DC 06/09/25 19:38 1 GM Famotidine (Pepcid 20mg Tab) 20 mg DAILY PO 06/09/25 09:00 07/09/25 08:59 06/10/25 09:07 20 MG Magnesium Sulfate 50 ml @ 0 mls/hr PROTOCOL PRN IV PRN 06/09/25 10:00 07/09/25 09:59 Ondansetron HCl (zoFRAN 4MG INJ) 4 mg Q6H PRN IV NAUSEA/VOMITING 06/08/25 20:00 07/08/25 19:59 Piperacillin Sod/ Tazobactam Sod (Zosyn 3.375gm+NS 50ml) 3.375 gm Q12H IVPB 06/10/25 13:30 06/20/25 13:29 06/11/25 00:49 3.375 GM Potassium Chloride 100 ml @ 100 mls/hr AD PRN IV POTASSIUM PROTOCOL 06/09/25 10:00 07/09/25 09:59 Potassium Chloride (K-Dur/Klor-Con 20meq) 20 meq AD PRN PO POTASSIUM PROTOCOL 06/09/25 10:00 07/09/25 09:59 Potassium Chloride (KCl 10% Elixir 20meq/15ml) 20 meq AD PRN PO POTASSIUM PROTOCOL 06/09/25 10:00 07/09/25 09:59 Sodium Chloride 1,000 ml @ 100 mls/hr Q10H IV 06/08/25 20:00 06/11/25 09:30 DC 06/11/25 08:17 100 MLS/HR Triamcinolone Acetonide (Kenalog/ Aristocort) 1 APPL TID PRN TP ITCHING 06/11/25 09:30 07/11/25 09:29 DIAGNOSTICS / RADIOLOGY: [ ] ASSESSMENT: Acute rhabdomyolysis POA Failure to thrive POA Functional decline POA Acute metabolic encephalopathy versus worsening dementia POA Acute urinary tract infection POA Acute kidney injury on chronic kidney disease POA Acute anemia POA Diabetes POA Hypertension POA Hyperlipidemia POA PLAN: Acute rhabdomyolysis POA * Pertinent labs Total C.K- 2895>2571>924>463. BUN 19>17>15>15. Creatinine 1.8>1.7>1.4>1.3 * IV hydration with 0.9% NACL was stopped on 06/11/25. * Will monitor daily CK levels * Will monitor daily labs. * Will monitor with daily I&O Acute metabolic encephalopathy versus worsening dementia POA * Vitamin B12-277, TSH-1.17, Ammonia <10 * Urinalysis was ordered, results were positive for UTI * Urine culture was positive for ESBL K. Pneumonia. with sensitivity to Meropenem, Aztreonam and Zosyn. * Infectious diseases was consulted, will follow their recommendations. * Patient was started on Zosyn (day2). * Will monitor with daily metabolic panel. Acute urinary tract infection POA * Urinalysis was ordered, results were positive for UTI, positive for occult blood, Protein (100) glucose (500), Leukocyte esterase -500 WBC- TNTC, RBC 6- 10 * Urine culture was positive for ESBL K. Pneumonia. with sensitivity to Meropenem, Aztreonam and Zosyn. * Infectious diseases was consulted, will follow their recommendations. * Patient was started on Zosyn (day2). Failure to thrive POA * Patient is NPO today for scheduled EGD today for dysphagia. * Ordered dietary consultation to assess malnutrition Supportive measures: GI prophylaxis with famotidine 20 mg p.o. DVT prophylaxis with SCD's ATTESTATION BY PHYSICIAN I have seen and examined the patient. I reviewed the documentation, medical decision making, and treatment plan as noted by the resident physician above. I agree with the findings and plan of care. NEEL PACHECO MD, SHAJI MD Jun 11, 2025 14:24
--- NOTE | 2025-06-11 20:43 | PN ---
INFECTIOUS DISEASE PROGRESS NOTE Date of Service: Jun 11, 2025 SUBJECTIVE: This is a 74-year-old female patient who was seen and examined at bedside in room 319. Patient continues on Zosyn for UTI, ESBL. Patient has been referred to SNF and pending insurance authorization. Patient remains afebrile. No reports of nausea or vomiting. We will continue to monitor patient. PHYSICAL EXAM EYES: Anicteric. Pupils equal and reactive. HENT: No oral thrush seen, moist Oral mucosa NECK: Supple, no JVD or thyromegaly. LUNGS: Good air entry. No rales, no rhonchi. CARDIOVASCULAR: S1, S2 regular. No murmur heard. ABDOMEN: Soft, non tender, bowel sounds present. CENTRAL NERVOUS SYSTEM: Awake, alert, oriented x 2. SKIN: No rashes, no swelling. LYMPHATICS: No peripheral lymphadenopathy MUSCULOSKELETAL: No joint swelling, erythema or tenderness. EXTREMITIES: No cyanosis or clubbing. Generalized debility. BACK: No deformity, no pressure ulcer. GENITOURINARY: No dysuria or hematuria. Vital Sign (Last 12 Hours) 06/11/25 06/11/25 06/11/25 06/11/25 11:53 11:53 12:05 12:10 Temp 97.9 Pulse 86 93 Resp 17 18 B/P (MAP) 97/55 101/50 Pulse Ox 100 100 O2 Delivery Mask Mask Nonrebreathing Mask Nonrebreathing Mask O2 Flow Rate 10.0 3.0 3.0 06/11/25 06/11/25 06/11/25 06/11/25 12:15 12:20 12:25 12:30 Pulse 91 95 96 96 Resp 18 20 20 20 B/P (MAP) 104/51 110/54 117/54 116/54 Pulse Ox 98 97 97 96 O2 Delivery Room Air Room Air Room Air Room Air 06/11/25 06/11/25 06/11/25 06/11/25 12:30 12:35 12:45 13:15 Temp 98.1 Pulse 101 95 95 97 Resp 18 20 B/P (MAP) 123/55 120/54 114/64 128/53 Pulse Ox 95 97 95 95 O2 Delivery Room Air Room Air Room Air Room Air 06/11/25 06/11/25 06/11/25 06/11/25 13:45 14:45 15:45 16:45 Pulse 103 85 117 100 B/P (MAP) 122/65 139/69 133/73 129/67 Pulse Ox 95 95 94 97 O2 Delivery Room Air Room Air Room Air Room Air 06/11/25 17:45 Pulse 104 B/P (MAP) 146/76 Pulse Ox 97 O2 Delivery Room Air Intake & Output (last 24hrs) 06/10/25 06/10/25 06/11/25 15:00 23:00 07:00 Output Total 590 ml Balance -590 ml LABS: Laboratory: Test 06/11/25 19:42 06/11/25 04:38 06/10/25 04:42 Range/Units Whole Blood Glucose 114 H 70-110 MG/DL White Blood Count 6.3 4.8-10.8 K/uL Red Blood Count 3.29 L 4.00-5.50 MIL/uL Hemoglobin 9.7 L 12.0-16.0 g/dL Hematocrit 30.1 L 36-48 % Mean Corpuscular Volume 91.5 79-99 fL Mean Corpuscular Hemoglobin 29.5 27.0-33.0 pg Mean Corpuscular Hemoglobin Concent 32.2 32.0-36.0 g/dL Red Cell Distribution Width 12.3 11.0-15.5 % Platelet Count 132 130-400 K/uL Mean Platelet Volume 11.1 H 7.5-10.5 fL Immature Granulocyte % (Auto) 0.8 0-1 % Neutrophils (%) (Auto) 74.1 40.0-77.0 % Lymphocytes (%) (Auto) 14.7 L 21.0-51.0 % Monocytes (%) (Auto) 7.9 3.0-13.0 % Eosinophils (%) (Auto) 2.2 0.0-8.0 % Basophils (%) (Auto) 0.3 0.0-5.0 % Neutrophils # (Auto) 4.7 1.8-7.7 K/uL Lymphocytes # (Auto) 0.9 L 1.0-4.8 K/uL Monocytes # (Auto) 0.5 0.1-1.0 K/uL Eosinophils # (Auto) 0.14 0.00-0.70 K/uL Basophils # (Auto) 0.02 0.00-0.20 K/uL Absolute Immature Granulocyte (auto 0.05 0-1 K/uL Nucleated Red Blood Cells 0.0 0.0-0.19 % Sodium Level 140 136-145 mmol/L Potassium Level 3.8 3.5-5.1 mmol/L Chloride Level 104 101-111 mmol/L Carbon Dioxide Level 27 21-32 mmol/L Blood Urea Nitrogen 15 7-18 mg/dL Creatinine 1.3 H 0.5-1.0 mg/dL Glomerular Filtration Rate Calc 43 >90 mL/min Random Glucose 96 70-105 mg/dL Total Calcium 8.0 L 8.5-10.1 mg/dL Total Bilirubin 0.8 # 0.2-1.0 mg/dL Aspartate Amino Transf (AST/SGOT) 51 H 10-37 U/L Alanine Aminotransferase (ALT/SGPT) 23 12-78 U/L Alkaline Phosphatase 57 50-136 U/L Total Creatine Kinase 463 #*H 21-232 U/L Total Protein 6.2 6.0-8.3 g/dL Albumin 2.5 L 3.5-5.0 g/dL Vitamin D 25-Hydroxy 23.1 30.0-100.0 ng/mL ASSESSMENT: Urinary tract infection with Klebsiella pneumoniae. Infection with multidrug resistant organism. Diabetes mellitus. Acute on chronic renal failure, improving. Rhabdomyolysis. Dementia. PLAN: Continue Zosyn 3.375 g IV q.12 hours. Case management working on arranging IV antibiotics for 10 days. Patient has been referred to SNF and pending insurance approval. Avoid nephrotoxic medications. Continue physical therapy. This case was reviewed and discussed with my supervising physician Dr. Goodrich and the above assessment and plan was formulated and agreed upon. ATTESTATION BY PHYSICIAN I have seen and examined the patient. I reviewed the documentation, medical decision making, and treatment plan as noted by the mid-level provider above. I agree with the findings and plan of care. JEANMARIE GOODRICH MD, MIRTA L [facility] Jun 11, 2025 20:43
[2025-06-12] VITALS (7 sets, daily range): BP systolic 118–159; BP diastolic 28–95; PULSE 65–113; RESP 17–18; TEMP 97.5–100.6; O2SAT 97–98
[2025-06-12 06:04] LABS: IMMATURE GRANULOCYTE ABSOLUTE 0.04 K/uL (0-1); NUCLEATED RED BLOOD CELLS 0.0 % (0.0-0.19); PLATELET COUNT (AUTO) 154 K/uL (130-400); RED BLOOD CELL COUNT(AUTO) 3.50 MIL/uL (4.00-5.50); RED CELL DISTRIBUTION WIDTH 12.5 % (11.0-15.5); WHITE BLOOD COUNT (AUTO) 8.1 K/uL (4.8-10.8)
[2025-06-12 06:26] LABS: ASPARTATE AMINOTRANSFERASE 38.0 U/L (10-37); CREATININE 1.5 mg/dL (0.5-1.0); GLOMERULAR FILTR. RATE CALC 36.0 mL/min (>90); GLUCOSE,RANDOM 101.0 mg/dL (70-105); SODIUM SERUM 142.0 mmol/L (136-145); TOTAL PROTEIN, SERUM 6.7 g/dL (6.0-8.3); UREA NITROGEN, BLOOD 19.0 mg/dL (7-18)
--- NOTE | 2025-06-12 10:24 | PN ---
Subjective Review of Systems PROGRESS NOTE Date of Visit: Jun 12, 2025 Time of Visit: 10:19 Events since last encounter PATIENT RESTING IN BED Subjective PATIENT POOR HISTORIAN - HISTORY PER SISTER AND NURSING STAFF General: No Fever, No Chills, No Night Sweats, No Fatigue, No Malaise, No Appetite, No Other HEENT: No Head Aches, No Visual Changes, No Eye Pain, No Ear Pain; Dysphasia; No Sinus Congestion, No Post Nasal Drip, No Sore Throat, No Other Pulmonary: No Dyspnea, No Cough, No Pleuritic Chest Pain, No Other Cardiovascular: No: Chest Pain, Palpitations, Orthopnea, Paroxysmal Noc. Dyspnea, Edema, Lt Headedness, Other Gastrointestinal: No: Nausea, Vomiting, Abdominal Pain, Diarrhea, Constipation, Melena, Hematochezia, Other Genitourinary: No Dysuria, No Frequency, No Incontinence, No Hematuria, No Retention, No Other Musculoskeletal: No: other, neck pain, shoulder pain, arm pain, back pain, hand pain, leg pain, foot pain Skin: No Urticaria, No Rash, No Other Neurological: No: Weakness, Numbness, Incoordination, Change in speech, Confusion, Seizures, Other Objective Vitals and I/O Vital Sign (Last 24 Hours) 06/11/25 06/12/25 20:00 08:00 Temp 97.5 Pulse 75 Resp 18 B/P (MAP) 148/70 Pulse Ox 100 O2 Delivery Room Air O2 Flow Rate 0 FiO2 21 Intake & Output (last 24hrs) 06/11/25 06/11/25 06/12/25 15:00 23:00 07:00 Intake Total 0 ml Output Total 700 ml Balance -700 ml General: Alert, Cooperative, No acute distress HEENT: Atraumatic, PERRLA, EOMI Neck: Supple, No JVD Lungs: Clear to auscultation, Normal air movement Heart: Regular rate, Regular rhythm Abdomen: Normal bowel sounds, Soft, No masses Extremities: No clubbing, No cyanosis, No edema Skin: No rashes, No breakdown Neuro: Normal tone, Sensation intact, Other (MINIMAL CONVERSATION BUT ANSWERS YES AND NO APPROPRIATELY AND MOVES ALL 4 EXTERMITIES ) Psych/Mental Status: Other (FLAT AFFECT, ORIENTED TO PERSON AND PLACE, MINIMAL CONVERSATION) Results RADIOLOGY: [] EKG: [] Laboratory Tests Test 06/11/25 16:27 06/11/25 19:42 06/12/25 05:18 06/12/25 05:21 Whole Blood Glucose 104 MG/DL (70-110) 114 MG/DL (70-110) H 106 MG/DL (70-110) White Blood Count 8.1 K/uL (4.8-10.8) Red Blood Count 3.50 MIL/uL (4.00-5.50) L Hemoglobin 10.0 g/dL (12.0-16.0) L Hematocrit 31.5 % (36-48) L Mean Corpuscular Volume 90.0 fL (79-99) Mean Corpuscular Hemoglobin 28.6 pg (27.0-33.0) Mean Corpuscular Hemoglobin Concent 31.7 g/dL (32.0-36.0) L Red Cell Distribution Width 12.5 % (11.0-15.5) Platelet Count 154 K/uL (130-400) Mean Platelet Volume 11.5 fL (7.5-10.5) H Immature Granulocyte % (Auto) 0.5 % (0-1) Neutrophils (%) (Auto) 77.5 % (40.0-77.0) H Lymphocytes (%) (Auto) 13.2 % (21.0-51.0) L Monocytes (%) (Auto) 8.2 % (3.0-13.0) Eosinophils (%) (Auto) 0.4 % (0.0-8.0) Basophils (%) (Auto) 0.2 % (0.0-5.0) Neutrophils # (Auto) 6.3 K/uL (1.8-7.7) Lymphocytes # (Auto) 1.1 K/uL (1.0-4.8) Monocytes # (Auto) 0.7 K/uL (0.1-1.0) Eosinophils # (Auto) 0.03 K/uL (0.00-0.70) Basophils # (Auto) 0.02 K/uL (0.00-0.20) Absolute Immature Granulocyte (auto 0.04 K/uL (0-1) Nucleated Red Blood Cells 0.0 % (0.0-0.19) Sodium Level 142 mmol/L (136-145) Potassium Level 4.0 mmol/L (3.5-5.1) Chloride Level 106 mmol/L (101-111) Carbon Dioxide Level 26 mmol/L (21-32) Blood Urea Nitrogen 19 mg/dL (7-18) H Creatinine 1.5 mg/dL (0.5-1.0) H Glomerular Filtration Rate Calc 36 mL/min (>90) Random Glucose 101 mg/dL (70-105) Total Calcium 8.7 mg/dL (8.5-10.1) Total Bilirubin 0.9 mg/dL (0.2-1.0) Aspartate Amino Transf (AST/SGOT) 38 U/L (10-37) H Alanine Aminotransferase (ALT/SGPT) 20 U/L (12-78) Alkaline Phosphatase 57 U/L (50-136) Total Protein 6.7 g/dL (6.0-8.3) Albumin 2.5 g/dL (3.5-5.0) L Medications Current Medications Acetaminophen 650 mg Q6H PRN PO; Start 06/08/25 at 20:00; Stop 07/08/25 at 19:59 Acetaminophen 650 mg Q4H PRN PO; Start 06/08/25 at 20:00; Stop 07/08/25 at 19:59 Ondansetron HCl 4 mg Q6H PRN IV; Start 06/08/25 at 20:00; Stop 07/08/25 at 19:59 Famotidine 20 mg DAILY PO Last administered on 06/12/25at 08:09; Start 06/09/25 at 09:00; Stop 07/09/25 at 08:59 Sodium Chloride 1,000 ml @ 100 mls/hr Q10H IV Last administered on 06/11/25at 08:17; Start 06/08/25 at 20:00; Stop 06/11/25 at 09:30; Status DC Ceftriaxone Sodium 1 gm/ Sodium Chloride 50 ml @ 100 mls/hr Q24H IV; Start 06/08/25 at 20:00; Stop 06/08/25 at 20:03; Status DC Ceftriaxone Sodium 1 gm Q24H IVPB Last administered on 06/09/25at 19:38; Start 06/08/25 at 20:30; Stop 06/10/25 at 13:28; Status DC Potassium Chloride 100 ml @ 100 mls/hr AD PRN IV; Start 06/09/25 at 10:00; Stop 07/09/25 at 09:59 Potassium Chloride 20 meq AD PRN PO; Start 06/09/25 at 10:00; Stop 07/09/25 at 09:59 Potassium Chloride 20 meq AD PRN PO; Start 06/09/25 at 10:00; Stop 07/09/25 at 09:59 Magnesium Sulfate 50 ml @ 0 mls/hr PROTOCOL PRN IV; Start 06/09/25 at 10:00; Stop 07/09/25 at 09:59 Acetaminophen/ Codeine Phosphate 1 tab Q6H PRN PO; Start 06/09/25 at 10:00; Stop 07/09/25 at 09:59 Piperacillin Sod/ Tazobactam Sod 3.375 gm Q12H IVPB Last administered on 06/12/25at 01:29; Start 06/10/25 at 13:30; Stop 06/20/25 at 13:29 Triamcinolone Acetonide 1 APPL TID PRN TP; Start 06/11/25 at 09:30; Stop 07/11/25 at 09:29 Ketamine HCl 50 mg STK-MED ONCE .ROUTE; Start 06/11/25 at 11:52; Stop 06/11/25 at 11:52; Status DC Propofol 200 mg STK-MED ONCE IV; Start 06/11/25 at 11:52; Stop 06/11/25 at 11:52; Status DC Lidocaine HCl 100 mg STK-MED ONCE .ROUTE; Start 06/11/25 at 11:52; Stop 06/11/25 at 11:52; Status DC Sennosides 2 tab BID PO; Start 06/12/25 at 10:30; Stop 07/12/25 at 10:29 Sennosides 2 tab BID PO; Start 06/12/25 at 10:30; Stop 07/12/25 at 10:29; Status UNV Enoxaparin Sodium 40 mg DAILY SQ; Start 06/12/25 at 10:30; Stop 07/12/25 at 10:29; Status UNV Assessment/Plan ASSESSMENT: THIS IS A 74 YR OLD WOMAN WITH HISTORY OF DM II WITH POLYNEUROPATHY DM II W RENAL / CKD 3B HX ENDOMETRIAL CANCER S/P TOTAL HYSTERECTOMY LIPIDS MIXED HYPERTENSIVE HEART AND RENAL DIS/ / CKD 3B- LVH EF > 50% VIT B12 DEFICIENCY S/P BILATERAL CATARACT SURGERY GOUT OSTEOPOROSIS PAROXYSMAL - ATRIAL FIBRILLATION SECONDARY HYPERCOAGULABLE STATE U INCONT MIXED IBS W CONSTIPATION COPD CHANGES ON CXR DEMENTIA W/O BEHAVIORAL D/O S/P RIGHT TKA - DR MCCARTY -2020 S/P LEFT TKA SHE PRESENTED WITH UTI/KLEBSIELLA - MULTI DRUG RESISTANT RHABDOMYOLYSIS DECONDITIONING DECREASED NUTRITIONAL INTAKE PLAN: CONT IVF TOLERATED DUE TO POOR PO INTAKE SPEECH EVALUATION WITH MBSS ORDERED ASPIRATION PRECAUTIONS CONT IV ZOSYN BASED ON SENSITIVITIES SUPPLEMENT ELECTROLYTES TRY TO INC REHAB TOLERATED WITH P.T. FOLLOW RENAL FN AND IMPROVED H2B FOR STRESS ULCER PROPHYLAXIS LOVENOX TEDS AND SCD FOR DVT PROPHYLAXIS CODE STATUS ESTABLISHED DNR CASE MANAGEMENT WORKING ON SNF PLACEMENT BOTH SISTER W POA AND PATIENT DECLINE PEG FOR NOW WILL CONTINUE WITH CONSERVATIVE MEASURES NUTRITIONAL INTAKE WITH SUPPLEMENTS TOLERATED PROGNOSIS GUARDED DID DISCUSS POSSIBLE HOSPICE IF DOES NOT IMPROVE WITH TREATMENT AND WILL CONSIDER JANAY GAUTAM MD Jun 12, 2025 10:24
[2025-06-12] MEDS: SENNOSIDES 8.6 MG TABLET PO SCH ×2 (10:30)
--- NOTE | 2025-06-12 14:45 | NUR ---
ORAL MEDICATIONS PT UNABLE TO TOLERATE PO MEDS AT THIS TIME, PT DOES NOT HAVE STRENGTH TO SWALLOW MEDICATIONS EVEN CRUSHED WITH PUDDING.
[2025-06-12] MEDS: ENOXAPARIN SODIUM 40 MG/0.4 ML SYRINGE SQ SCH (14:51)
--- NOTE | 2025-06-12 19:54 | PN ---
INFECTIOUS DISEASE PROGRESS NOTE Date of Service: Jun 12, 2025 SUBJECTIVE: This is a 74-year-old female patient who was seen and examined at bedside in room 319. Patient has remained afebrile, current temperature 98.4. Continues on Zosyn. Patient has been referred to [facility] and pending insurance authorization. No other issues reported by nursing. PHYSICAL EXAM EYES: Anicteric. Pupils equal and reactive. HENT: No oral thrush seen, moist Oral mucosa NECK: Supple, no JVD or thyromegaly. LUNGS: Good air entry. No rales, no rhonchi. CARDIOVASCULAR: S1, S2 regular. No murmur heard. ABDOMEN: Soft, non tender, bowel sounds present, no organomegaly CENTRAL NERVOUS SYSTEM: Awake, alert, oriented x 3. No focal deficits. SKIN: No rashes, no swelling. LYMPHATICS: No peripheral lymphadenopathy MUSCULOSKELETAL: No joint swelling, erythema or tenderness. EXTREMITIES: No cyanosis or clubbing BACK: No deformity, no pressure ulcer. GENITOURINARY: No dysuria or hematuria Vital Sign (Last 12 Hours) 06/12/25 06/12/25 06/12/25 06/12/25 08:00 08:00 08:00 12:00 Temp 100.0 97.5 100.6 Pulse 106 75 109 Resp 18 18 18 B/P (MAP) 138/71 148/70 137/75 Pulse Ox 97 96 100 98 O2 Delivery Room Air* Room Air Room Air Room Air O2 Flow Rate 0 FiO2 21 06/12/25 16:00 Temp 97.9 Pulse 113 Resp 17 B/P (MAP) 127/28 Pulse Ox 94 O2 Delivery Nasal Cannula O2 Flow Rate 2.0 Intake & Output (last 24hrs) 06/11/25 06/11/25 06/12/25 15:00 23:00 07:00 Intake Total 0 ml Output Total 700 ml Balance -700 ml LABS: Laboratory: Test 06/12/25 19:00 06/12/25 05:18 06/11/25 04:38 Range/Units Whole Blood Glucose 139 H 70-110 MG/DL White Blood Count 8.1 4.8-10.8 K/uL Red Blood Count 3.50 L 4.00-5.50 MIL/uL Hemoglobin 10.0 L 12.0-16.0 g/dL Hematocrit 31.5 L 36-48 % Mean Corpuscular Volume 90.0 79-99 fL Mean Corpuscular Hemoglobin 28.6 27.0-33.0 pg Mean Corpuscular Hemoglobin Concent 31.7 L 32.0-36.0 g/dL Red Cell Distribution Width 12.5 11.0-15.5 % Platelet Count 154 130-400 K/uL Mean Platelet Volume 11.5 H 7.5-10.5 fL Immature Granulocyte % (Auto) 0.5 0-1 % Neutrophils (%) (Auto) 77.5 H 40.0-77.0 % Lymphocytes (%) (Auto) 13.2 L 21.0-51.0 % Monocytes (%) (Auto) 8.2 3.0-13.0 % Eosinophils (%) (Auto) 0.4 0.0-8.0 % Basophils (%) (Auto) 0.2 0.0-5.0 % Neutrophils # (Auto) 6.3 1.8-7.7 K/uL Lymphocytes # (Auto) 1.1 1.0-4.8 K/uL Monocytes # (Auto) 0.7 0.1-1.0 K/uL Eosinophils # (Auto) 0.03 0.00-0.70 K/uL Basophils # (Auto) 0.02 0.00-0.20 K/uL Absolute Immature Granulocyte (auto 0.04 0-1 K/uL Nucleated Red Blood Cells 0.0 0.0-0.19 % Sodium Level 142 136-145 mmol/L Potassium Level 4.0 3.5-5.1 mmol/L Chloride Level 106 101-111 mmol/L Carbon Dioxide Level 26 21-32 mmol/L Blood Urea Nitrogen 19 H 7-18 mg/dL Creatinine 1.5 H 0.5-1.0 mg/dL Glomerular Filtration Rate Calc 36 >90 mL/min Random Glucose 101 70-105 mg/dL Total Calcium 8.7 8.5-10.1 mg/dL Total Bilirubin 0.9 0.2-1.0 mg/dL Aspartate Amino Transf (AST/SGOT) 38 H 10-37 U/L Alanine Aminotransferase (ALT/SGPT) 20 12-78 U/L Alkaline Phosphatase 57 50-136 U/L Total Protein 6.7 6.0-8.3 g/dL Albumin 2.5 L 3.5-5.0 g/dL Total Creatine Kinase 463 #*H 21-232 U/L ASSESSMENT: Urinary tract infection with Klebsiella pneumoniae. Infection with multidrug resistant organism. Diabetes mellitus. Acute on chronic renal failure. Rhabdomyolysis. Dementia. PLAN: Continue Zosyn IV. Patient has been referred to SNF and pending insurance authorization. Avoid nephrotoxic medications. Generalized debility. Continue physical therapy. This case was reviewed and discussed with my supervising physician Dr. Goodrich and the above assessment and plan was formulated and agreed upon. ATTESTATION BY PHYSICIAN I have seen and examined the patient. I reviewed the documentation, medical decision making, and treatment plan as noted by the mid-level provider above. I agree with the findings and plan of care. JEANMARIE GOODRICH MD, [facility] Jun 12, 2025 19:54
--- NOTE | 2025-06-12 21:49 | NUR ---
ORAL MEDICATIONS PATIENT UNABLE TO SWALLOW ORAL MEDICATIONS CRUSHED AND WITH PUDDING, SHE KEEPS JUST KEEPS MEDICATION ON HER TONGUE THEN BEGINS TO COUGH.
--- NOTE | 2025-06-12 21:53 | HMCIMG ---
STUDY: X-RAY OF THE ABDOMEN, 1 VIEW HISTORY: Decreased oral intake and abdominal pain. TECHNIQUE: A single frontal view of the abdomen is submitted for interpretation. COMPARISON: None provided. FINDINGS: Bowel gas pattern: Non-specific bowel gas pattern with gas present in both small and large bowel without convincing disproportionate dilatation, multiple air-fluid levels, or a discrete transition point to suggest high-grade obstruction. No obvious free intraperitoneal air is identified within the limitations of a single supine view. Soft tissues: No definite abnormal soft tissue mass or pathologic calcification is identified. Overall abdominal contours appear unremarkable. Bones: Degenerative changes are present in the visualized lumbar spine. There is reduced height of the L3 vertebral body with changes compatible with prior vertebral augmentation/kyphoplasty. No new acute fracture or destructive osseous lesion is identified. IMPRESSION: * Non-specific, nonobstructive bowel gas pattern without radiographic evidence of high-grade bowel obstruction or free intraperitoneal air on this single abdominal view. * Degenerative changes in the lumbar spine with reduced height and prior kyphoplasty of L3, without definite new acute osseous abnormality. /[place]
[2025-06-13] VITALS (7 sets, daily range): BP systolic 95–133; BP diastolic 59–96; PULSE 53–102; RESP 16–22; TEMP 97.3–100.4; O2SAT 98
[2025-06-13 05:33] LABS: NUCLEATED RED BLOOD CELLS 0.0 % (0.0-0.19); PLATELET COUNT (AUTO) 165.0 K/uL (130-400); RED BLOOD CELL COUNT(AUTO) 3.61 MIL/uL (4.00-5.50); RED CELL DISTRIBUTION WIDTH 12.4 % (11.0-15.5); WHITE BLOOD COUNT (AUTO) 10.7 K/uL (4.8-10.8)
[2025-06-13 05:43] LABS: CREATININE 1.6 mg/dL (0.5-1.0); GLOMERULAR FILTR. RATE CALC 33.0 mL/min (>90); GLUCOSE,RANDOM 127.0 mg/dL (70-105); SODIUM SERUM 144.0 mmol/L (136-145); UREA NITROGEN, BLOOD 31.0 mg/dL (7-18)
[2025-06-13] MEDS: 0.9%NACL 1000ML 1,000 ML IV SCH (11:17)
--- NOTE | 2025-06-13 12:30 | NUR ---
SPEECH THERAPY BOOKING SUPERVISOR arrived to patient's room; however, patient very lethargic and unable to fully wake up. Pt breathing by mouth with NC in place. Family present at time of visit. BOOKING SUPERVISOR educated patient/family that there is a high risk feeding patient in this state. As per family and nurse Parvin, patient holding food and coughing. Recommend NPO, watermaster alternate means of nutrition/hydration. Pt's family refusing PEG tube placement. May want to consider hospice with comfort measures as tolerated. Pt made NPO at this time until patient/family make a decision. All questions answered. MBSS not warranted at this time.
--- NOTE | 2025-06-13 13:40 | PN ---
Subjective Review of Systems PROGRESS NOTE Date of Visit: Jun 13, 2025 Time of Visit: 13:40 Events since last encounter PATIENT LETHARGIC BUT AWAKE Subjective PATIENT POOR HISTORIAN - HISTORY PER SISTER AND NURSING STAFF General: No Fever, No Chills, No Night Sweats, No Fatigue, No Malaise, No Appetite, No Other HEENT: No Head Aches, No Visual Changes, No Eye Pain, No Ear Pain; Dysphasia; No Sinus Congestion, No Post Nasal Drip, No Sore Throat, No Other Pulmonary: No Dyspnea, No Cough, No Pleuritic Chest Pain, No Other Cardiovascular: No: Chest Pain, Palpitations, Orthopnea, Paroxysmal Noc. Dyspnea, Edema, Lt Headedness, Other Gastrointestinal: No: Nausea, Vomiting, Abdominal Pain, Diarrhea, Constipation, Melena, Hematochezia, Other Genitourinary: No Dysuria, No Frequency, No Incontinence, No Hematuria, No Retention, No Other Musculoskeletal: No: other, neck pain, shoulder pain, arm pain, back pain, hand pain, leg pain, foot pain Skin: No Urticaria, No Rash, No Other Neurological: Weakness, Change in speech (WEAKER SPEECH); No: Numbness, Incoordination, Confusion, Seizures, Other Objective Vitals and I/O Vital Sign (Last 24 Hours) 06/12/25 06/13/25 20:00 12:00 Temp 100.0 Pulse 99 Resp 18 B/P (MAP) 121/77 Pulse Ox 98 O2 Delivery Nasal Cannula O2 Flow Rate 2.0 FiO2 21 Intake & Output (last 24hrs) 06/12/25 06/12/25 06/13/25 15:00 23:00 07:00 Intake Total 0 ml Output Total 700 ml Balance -700 ml General: Alert (SOFT SPEECH), Cooperative, No acute distress HEENT: Atraumatic, PERRLA, EOMI Neck: Supple, No JVD Lungs: Normal air movement, Other (POOR INSPIRATORY EFFORT) Heart: Regular rate, Regular rhythm Abdomen: Normal bowel sounds, Soft, No tenderness, No masses Extremities: No clubbing, No cyanosis, No edema Skin: No rashes Neuro: Normal tone, Sensation intact, Other (MINIMAL CONVERSATION BUT ANSWERS YES AND NO APPROPRIATELY) Psych/Mental Status: Other (FLAT AFFECT, ORIENTED TO PERSON AND PLACE, MINIMAL CONVERSATION) Results RADIOLOGY: [] EKG: [] Laboratory Tests Test 06/12/25 16:13 06/12/25 19:00 06/13/25 05:24 06/13/25 05:28 Whole Blood Glucose 119 MG/DL (70-110) H 139 MG/DL (70-110) H 123 MG/DL (70-110) H White Blood Count 10.7 K/uL (4.8-10.8) Red Blood Count 3.61 MIL/uL (4.00-5.50) L Hemoglobin 10.5 g/dL (12.0-16.0) L Hematocrit 32.4 % (36-48) L Mean Corpuscular Volume 89.8 fL (79-99) Mean Corpuscular Hemoglobin 29.1 pg (27.0-33.0) Mean Corpuscular Hemoglobin Concent 32.4 g/dL (32.0-36.0) Red Cell Distribution Width 12.4 % (11.0-15.5) Platelet Count 165 K/uL (130-400) Mean Platelet Volume 11.1 fL (7.5-10.5) H Nucleated Red Blood Cells 0.0 % (0.0-0.19) Sodium Level 144 mmol/L (136-145) Potassium Level 4.0 mmol/L (3.5-5.1) Chloride Level 110 mmol/L (101-111) Carbon Dioxide Level 25 mmol/L (21-32) Blood Urea Nitrogen 31 mg/dL (7-18) H Creatinine 1.6 mg/dL (0.5-1.0) H Glomerular Filtration Rate Calc 33 mL/min (>90) Random Glucose 127 mg/dL (70-105) H Total Calcium 8.7 mg/dL (8.5-10.1) Test 06/13/25 11:46 Whole Blood Glucose 126 MG/DL (70-110) H Medications Current Medications Acetaminophen 650 mg Q6H PRN PO; Start 06/08/25 at 20:00; Stop 07/08/25 at 19:59 Acetaminophen 650 mg Q4H PRN PO; Start 06/08/25 at 20:00; Stop 07/08/25 at 19:59 Ondansetron HCl 4 mg Q6H PRN IV; Start 06/08/25 at 20:00; Stop 07/08/25 at 19:59 Famotidine 20 mg DAILY PO Last administered on 06/12/25at 08:09; Start 06/09/25 at 09:00; Stop 07/09/25 at 08:59 Sodium Chloride 1,000 ml @ 100 mls/hr Q10H IV Last administered on 06/11/25at 08:17; Start 06/08/25 at 20:00; Stop 06/11/25 at 09:30; Status DC Ceftriaxone Sodium 1 gm/ Sodium Chloride 50 ml @ 100 mls/hr Q24H IV; Start 06/08/25 at 20:00; Stop 06/08/25 at 20:03; Status DC Ceftriaxone Sodium 1 gm Q24H IVPB Last administered on 06/09/25at 19:38; Start 06/08/25 at 20:30; Stop 06/10/25 at 13:28; Status DC Potassium Chloride 100 ml @ 100 mls/hr AD PRN IV; Start 06/09/25 at 10:00; Stop 07/09/25 at 09:59 Potassium Chloride 20 meq AD PRN PO; Start 06/09/25 at 10:00; Stop 07/09/25 at 09:59 Potassium Chloride 20 meq AD PRN PO; Start 06/09/25 at 10:00; Stop 07/09/25 at 09:59 Magnesium Sulfate 50 ml @ 0 mls/hr PROTOCOL PRN IV; Start 06/09/25 at 10:00; Stop 07/09/25 at 09:59 Acetaminophen/ Codeine Phosphate 1 tab Q6H PRN PO; Start 06/09/25 at 10:00; Stop 07/09/25 at 09:59 Piperacillin Sod/ Tazobactam Sod 3.375 gm Q12H IVPB Last administered on 06/13/25at 01:27; Start 06/10/25 at 13:30; Stop 06/20/25 at 13:29 Triamcinolone Acetonide 1 APPL TID PRN TP; Start 06/11/25 at 09:30; Stop 07/11/25 at 09:29 Ketamine HCl 50 mg STK-MED ONCE .ROUTE; Start 06/11/25 at 11:52; Stop 06/11/25 at 11:52; Status DC Propofol 200 mg STK-MED ONCE IV; Start 06/11/25 at 11:52; Stop 06/11/25 at 11:52; Status DC Lidocaine HCl 100 mg STK-MED ONCE .ROUTE; Start 06/11/25 at 11:52; Stop 06/11/25 at 11:52; Status DC Sennosides 2 tab BID PO; Start 06/12/25 at 10:30; Stop 07/12/25 at 10:29 Sennosides 2 tab BID PO; Start 06/12/25 at 10:30; Stop 06/13/25 at 07:51; Status DC Enoxaparin Sodium 40 mg DAILY SQ Last administered on 06/13/25at 11:35; Start 06/12/25 at 10:30; Stop 07/12/25 at 10:29 Memantine 10 mg BID PO; Start 06/12/25 at 21:00; Stop 07/12/25 at 20:59 Metoprolol Tartrate 25 mg BID PO; Start 06/12/25 at 21:00; Stop 07/12/25 at 20:59 Atorvastatin Calcium 10 mg HS PO; Start 06/12/25 at 21:00; Stop 07/12/25 at 20:59 Sodium Chloride 1,000 ml @ 100 mls/hr Q10H IV Last administered on 06/13/25at 11:17; Start 06/13/25 at 11:00; Stop 07/13/25 at 10:59 Assessment/Plan ASSESSMENT: THIS IS A 74 YR OLD WOMAN WITH HISTORY OF DM II WITH POLYNEUROPATHY DM II W RENAL / CKD 3B HX ENDOMETRIAL CANCER S/P TOTAL HYSTERECTOMY LIPIDS MIXED HYPERTENSIVE HEART AND RENAL DIS/ / CKD 3B- LVH EF > 50% VIT B12 DEFICIENCY S/P BILATERAL CATARACT SURGERY GOUT OSTEOPOROSIS PAROXYSMAL - ATRIAL FIBRILLATION SECONDARY HYPERCOAGULABLE STATE U INCONT MIXED IBS W CONSTIPATION COPD CHANGES ON CXR DEMENTIA W/O BEHAVIORAL D/O S/P RIGHT TKA - DR MCCARTY -2020 S/P LEFT TKA SHE PRESENTED WITH UTI/KLEBSIELLA - MULTI DRUG RESISTANT RHABDOMYOLYSIS DECONDITIONING MODERATE CALORIC PROTEIN MALNUTRITION PEG DECLINED BY PATIENT AND FAMILY CODE STATUS DNR PLAN: CONT IVF TOLERATED DUE TO POOR PO INTAKE SPEECH EVALUATION WITH MBSS COULD NOT BE DONE VERY APPARENT SHE IS NOT ABLE TO SWALLOW SAFELY CONT ASPIRATION PRECAUTIONS AND IS NOW STRICT NPO CONT IV ZOSYN SUPPLEMENT ELECTROLYTES PATIENT NOT PROGRESSING WITH REHAB DUE TO POOR NUTRITIONAL INTAKE H2B FOR STRESS ULCER PROPHYLAXIS LOVENOX TEDS AND SCD FOR DVT PROPHYLAXIS CASE MANAGEMENT WORKING ON SNF PLACEMENT BUT PATIENT WILL NOT BE ACCEPTED AT SNF DUE TO NO FORM OF NUTRITION SINCE PATIENT AND FAMILY CONTINUE TO DECLINE PEG DISCUSSED HOME WITH HOSPICE VS HOSPICE HOME SISTER AGREES TO MEET WITH HOSPICE AND CONSULT ORDERED JANAY GAUTAM MD Jun 13, 2025 13:40
--- NOTE | 2025-06-13 16:07 | NUR ---
OOHDNR SW received order from Dr Dixon to complete OOHDNR, spoke with sister/MPOA and signed document. Original given to sister and copy placed in chart.
--- NOTE | 2025-06-13 21:21 | PN ---
INFECTIOUS DISEASE PROGRESS NOTE Date of Service: Jun 13, 2025 SUBJECTIVE: Patient was seen at bedside in room 319. Patient had a low-grade fever of 100.4 this morning. We will continue on Zosyn and continue to monitor. Per report patient's family considering hospice services. We will sign off at this time, reconsult if needed. REVIEW OF SYSTEMS CONSTITUTIONAL: Denies fever, chills, or fatigue. HEAD/FACE: No signs of trauma. EENT: Denies eye pain, blurred vision, double vision, or light sensitivity. RESPIRATORY: Denies shortness of breath, cough, wheezing CARDIOVASCULAR: Denies chest pain, palpitation, syncope GASTROINTESTINAL/ABDOMINAL: Denies abdominal pain, constipation, diarrhea, nausea or vomiting GENITOURINARY: Denies dysuria or hematuria. MUSCULOSKELETAL: Generalized body weakness INTEGUMENTARY: Denies rash or itchiness NEUROLOGICAL/PSYCH: Worsening mental status, failure to thrive. PHYSICAL EXAM EYES: Anicteric. Pupils equal and reactive. HENT: No oral thrush seen, moist Oral mucosa NECK: Supple, no JVD or thyromegaly. LUNGS: Good air entry. No rales, no rhonchi. CARDIOVASCULAR: S1, S2 regular. No murmur heard. ABDOMEN: Soft, non tender, bowel sounds present. CENTRAL NERVOUS SYSTEM: Awake, alert, oriented x 2. SKIN: No rashes, no swelling. LYMPHATICS: No peripheral lymphadenopathy MUSCULOSKELETAL: No joint swelling, erythema or tenderness. EXTREMITIES: No cyanosis or clubbing. Generalized debility. BACK: No deformity, no pressure ulcer. GENITOURINARY: No dysuria or hematuria. Vital Sign (Last 12 Hours) 06/13/25 06/13/25 12:00 16:00 Temp 100.0 99.9 Pulse 99 99 Resp 18 18 B/P (MAP) 121/77 131/69 Pulse Ox 98 98 O2 Delivery Nasal Cannula Nasal Cannula O2 Flow Rate 2.0 2.0 Intake & Output (last 24hrs) 06/12/25 06/12/25 06/13/25 15:00 23:00 07:00 Intake Total 0 ml Output Total 700 ml Balance -700 ml LABS: Laboratory: Test 06/13/25 19:43 06/13/25 05:28 06/12/25 05:18 Range/Units Whole Blood Glucose 121 H 70-110 MG/DL White Blood Count 10.7 4.8-10.8 K/uL Red Blood Count 3.61 L 4.00-5.50 MIL/uL Hemoglobin 10.5 L 12.0-16.0 g/dL Hematocrit 32.4 L 36-48 % Mean Corpuscular Volume 89.8 79-99 fL Mean Corpuscular Hemoglobin 29.1 27.0-33.0 pg Mean Corpuscular Hemoglobin Concent 32.4 32.0-36.0 g/dL Red Cell Distribution Width 12.4 11.0-15.5 % Platelet Count 165 130-400 K/uL Mean Platelet Volume 11.1 H 7.5-10.5 fL Nucleated Red Blood Cells 0.0 0.0-0.19 % Sodium Level 144 136-145 mmol/L Potassium Level 4.0 3.5-5.1 mmol/L Chloride Level 110 101-111 mmol/L Carbon Dioxide Level 25 21-32 mmol/L Blood Urea Nitrogen 31 H 7-18 mg/dL Creatinine 1.6 H 0.5-1.0 mg/dL Glomerular Filtration Rate Calc 33 >90 mL/min Random Glucose 127 H 70-105 mg/dL Total Calcium 8.7 8.5-10.1 mg/dL Immature Granulocyte % (Auto) 0.5 0-1 % Neutrophils (%) (Auto) 77.5 H 40.0-77.0 % Lymphocytes (%) (Auto) 13.2 L 21.0-51.0 % Monocytes (%) (Auto) 8.2 3.0-13.0 % Eosinophils (%) (Auto) 0.4 0.0-8.0 % Basophils (%) (Auto) 0.2 0.0-5.0 % Neutrophils # (Auto) 6.3 1.8-7.7 K/uL Lymphocytes # (Auto) 1.1 1.0-4.8 K/uL Monocytes # (Auto) 0.7 0.1-1.0 K/uL Eosinophils # (Auto) 0.03 0.00-0.70 K/uL Basophils # (Auto) 0.02 0.00-0.20 K/uL Absolute Immature Granulocyte (auto 0.04 0-1 K/uL Total Bilirubin 0.9 0.2-1.0 mg/dL Aspartate Amino Transf (AST/SGOT) 38 H 10-37 U/L Alanine Aminotransferase (ALT/SGPT) 20 12-78 U/L Alkaline Phosphatase 57 50-136 U/L Total Protein 6.7 6.0-8.3 g/dL Albumin 2.5 L 3.5-5.0 g/dL ASSESSMENT: Urinary tract infection with Klebsiella pneumoniae. Infection with multidrug resistant organism. Diabetes mellitus. Acute on chronic renal failure. Rhabdomyolysis. Dementia. PLAN: Continue Zosyn IV. Generalized debility. Continue physical therapy. Patient has been approved to SNF, Family member however considering hospice services. We will sign off at this time. Reconsult if needed This case was reviewed and discussed with my supervising physician Dr. Goodrich and the above assessment and plan was formulated and agreed upon. ATTESTATION BY PHYSICIAN I have seen and examined the patient. I reviewed the documentation, medical decision making, and treatment plan as noted by the mid-level provider above. I agree with the findings and plan of care. JEANMARIE GOODRICH MD, [facility] Jun 13, 2025 21:21
[2025-06-14] VITALS: BP 115/57; PULSE 104; RESP 20; TEMP 97.5
[2025-06-14 04:00] VITALS: BP 126/63; PULSE 92; RESP 20; TEMP 98
[2025-06-14 05:14] LABS: CREATININE 1.3 mg/dL (0.5-1.0); GLOMERULAR FILTR. RATE CALC 43.0 mL/min (>90); GLUCOSE,RANDOM 112.0 mg/dL (70-105); SODIUM SERUM 149.0 mmol/L (136-145); UREA NITROGEN, BLOOD 36.0 mg/dL (7-18)
[2025-06-14 07:15] VITALS: BP_SYST 131; BP_SYST 64; BP_DIAS 41; BP_DIAS 53; PULSE 80; RESP 16; TEMP 98.3
[2025-06-14 08:30] VITALS: O2SAT 96
[2025-06-14 10:50] VITALS: BP 109/57; PULSE 59; RESP 16; TEMP 98.2
--- NOTE | 2025-06-14 12:55 | PN ---
Subjective Review of Systems PROGRESS NOTE Date of Visit: Jun 14, 2025 Time of Visit: 12:54 Events since last encounter PATIENT REMAINS WEAK BUT VERBALLY RESPONSIVE Subjective PATIENT W/O N/V AND BEEN NPO General: No Fever, No Chills, No Night Sweats, No Fatigue, No Malaise, No Appetite, No Other HEENT: No Head Aches, No Visual Changes, No Eye Pain, No Ear Pain; Dysphasia; No Sinus Congestion, No Post Nasal Drip, No Sore Throat, No Other Pulmonary: No Dyspnea, No Cough, No Pleuritic Chest Pain, No Other Cardiovascular: No: Chest Pain, Palpitations, Orthopnea, Paroxysmal Noc. Dyspnea, Edema, Lt Headedness, Other Gastrointestinal: No: Nausea, Vomiting, Abdominal Pain, Diarrhea, Constipation, Melena, Hematochezia, Other Genitourinary: No Dysuria, No Frequency, No Incontinence, No Hematuria, No Retention, No Other Musculoskeletal: No: other, neck pain, shoulder pain, arm pain, back pain, hand pain, leg pain, foot pain Skin: No Urticaria, No Rash, No Other Neurological: Weakness, Change in speech (WEAKER SPEECH); No: Numbness, Incoord ination, Confusion, Seizures, Other Objective Vitals and I/O Vital Sign (Last 24 Hours) 06/13/25 06/14/25 20:00 10:50 Temp 98.2 Pulse 59 Resp 16 B/P (MAP) 109/57 Pulse Ox 98 O2 Delivery Nasal Cannula O2 Flow Rate 2.0 FiO2 21 Intake & Output (last 24hrs) 06/13/25 06/13/25 06/14/25 15:00 23:00 07:00 Intake Total 300 ml Output Total 500 ml Balance -200 ml General: Alert (SOFT SPEECH), Cooperative, No acute distress HEENT: Atraumatic, PERRLA, EOMI Neck: Supple, No JVD Lungs: Normal air movement, Other (POOR INSPIRATORY EFFORT) Heart: Regular rate, Regular rhythm Abdomen: Normal bowel sounds, Soft, No tenderness, No masses Extremities: No clubbing, No cyanosis, No edema Skin: No rashes Neuro: Normal tone, Sensation intact, Other (MINIMAL CONVERSATION BUT ANSWERS YES AND NO APPROPRIATELY) Psych/Mental Status: Other (FLAT AFFECT, ORIENTED TO PERSON AND PLACE, MINIMAL CONVERSATION) Results RADIOLOGY: [] EKG: [] Laboratory Tests Test 06/13/25 15:47 06/13/25 19:43 06/14/25 04:42 06/14/25 05:35 Whole Blood Glucose 119 MG/DL (70-110) H 121 MG/DL (70-110) H 112 MG/DL (70-110) H Sodium Level 149 mmol/L (136-145) H Potassium Level 3.7 mmol/L (3.5-5.1) Chloride Level 114 mmol/L (101-111) H Carbon Dioxide Level 27 mmol/L (21-32) Blood Urea Nitrogen 36 mg/dL (7-18) H Creatinine 1.3 mg/dL (0.5-1.0) H Glomerular Filtration Rate Calc 43 mL/min (>90) Random Glucose 112 mg/dL (70-105) H Total Calcium 8.9 mg/dL (8.5-10.1) Test 06/14/25 10:51 Whole Blood Glucose 108 MG/DL (70-110) Medications Current Medications Acetaminophen 650 mg Q6H PRN PO; Start 06/08/25 at 20:00; Stop 07/08/25 at 19:59 Acetaminophen 650 mg Q4H PRN PO; Start 06/08/25 at 20:00; Stop 07/08/25 at 19:59 Ondansetron HCl 4 mg Q6H PRN IV; Start 06/08/25 at 20:00; Stop 07/08/25 at 19:59 Famotidine 20 mg DAILY PO Last administered on 06/12/25at 08:09; Start 06/09/25 at 09:00; Stop 07/09/25 at 08:59 Sodium Chloride 1,000 ml @ 100 mls/hr Q10H IV Last administered on 06/11/25at 08:17; Start 06/08/25 at 20:00; Stop 06/11/25 at 09:30; Status DC Ceftriaxone Sodium 1 gm/ Sodium Chloride 50 ml @ 100 mls/hr Q24H IV; Start 06/08/25 at 20:00; Stop 06/08/25 at 20:03; Status DC Ceftriaxone Sodium 1 gm Q24H IVPB Last administered on 06/09/25at 19:38; Start 06/08/25 at 20:30; Stop 06/10/25 at 13:28; Status DC Potassium Chloride 100 ml @ 100 mls/hr AD PRN IV; Start 06/09/25 at 10:00; Stop 07/09/25 at 09:59 Potassium Chloride 20 meq AD PRN PO; Start 06/09/25 at 10:00; Stop 07/09/25 at 09:59 Potassium Chloride 20 meq AD PRN PO; Start 06/09/25 at 10:00; Stop 07/09/25 at 09:59 Magnesium Sulfate 50 ml @ 0 mls/hr PROTOCOL PRN IV; Start 06/09/25 at 10:00; Stop 07/09/25 at 09:59 Acetaminophen/ Codeine Phosphate 1 tab Q6H PRN PO; Start 06/09/25 at 10:00; Stop 07/09/25 at 09:59 Piperacillin Sod/ Tazobactam Sod 3.375 gm Q12H IVPB Last administered on 06/14/25at 01:57; Start 06/10/25 at 13:30; Stop 06/20/25 at 13:29 Triamcinolone Acetonide 1 APPL TID PRN TP; Start 06/11/25 at 09:30; Stop 07/11/25 at 09:29 Ketamine HCl 50 mg STK-MED ONCE .ROUTE; Start 06/11/25 at 11:52; Stop 06/11/25 at 11:52; Status DC Propofol 200 mg STK-MED ONCE IV; Start 06/11/25 at 11:52; Stop 06/11/25 at 11:52; Status DC Lidocaine HCl 100 mg STK-MED ONCE .ROUTE; Start 06/11/25 at 11:52; Stop 06/11/25 at 11:52; Status DC Sennosides 2 tab BID PO; Start 06/12/25 at 10:30; Stop 07/12/25 at 10:29 Sennosides 2 tab BID PO; Start 06/12/25 at 10:30; Stop 06/13/25 at 07:51; Status DC Enoxaparin Sodium 40 mg DAILY SQ Last administered on 06/13/25at 11:35; Start 06/12/25 at 10:30; Stop 07/12/25 at 10:29 Memantine 10 mg BID PO; Start 06/12/25 at 21:00; Stop 07/12/25 at 20:59 Metoprolol Tartrate 25 mg BID PO; Start 06/12/25 at 21:00; Stop 07/12/25 at 20:59 Atorvastatin Calcium 10 mg HS PO; Start 06/12/25 at 21:00; Stop 07/12/25 at 20:59 Sodium Chloride 1,000 ml @ 50 mls/hr Q20H IV Last administered on 06/14/25at 01:59; Start 06/13/25 at 11:00; Stop 07/13/25 at 10:59 Assessment/Plan ASSESSMENT: THIS IS A 74 YR OLD WOMAN WITH HISTORY OF DM II WITH POLYNEUROPATHY DM II W RENAL / CKD 3B HX ENDOMETRIAL CANCER S/P TOTAL HYSTERECTOMY LIPIDS MIXED HYPERTENSIVE HEART AND RENAL DIS/ / CKD 3B- LVH EF > 50% VIT B12 DEFICIENCY S/P BILATERAL CATARACT SURGERY GOUT OSTEOPOROSIS PAROXYSMAL - ATRIAL FIBRILLATION SECONDARY HYPERCOAGULABLE STATE U INCONT MIXED IBS W CONSTIPATION COPD CHANGES ON CXR DEMENTIA W/O BEHAVIORAL D/O S/P RIGHT TKA - DR MCCARTY -2020 S/P LEFT TKA SHE PRESENTED WITH UTI/KLEBSIELLA - MULTI DRUG RESISTANT RHABDOMYOLYSIS DECONDITIONING MODERATE CALORIC PROTEIN MALNUTRITION PEG DECLINED BY PATIENT AND FAMILY CODE STATUS DNR FAILURE TO THRIVE DUE TO POOR NUTRITIONAL INTAKE PLAN: CONT IVF TOLERATED NOT SAFE TO DO MBSS OR EAT PER SPEECH SO REMAINS NPO FAMILY MET WITH HOSPICE AND DID NOT ACCEPT YESTERDAY DOES NOT WANT TO GO HOME WITH HOSPICE AND DOES NOT WANT TO GO TO A HOSPICE HOME SNF DID NOT WANT TO ACCEPT YESTERDAY IF THERE WERE NO MEANS OF SAFE NUTRITION AND DID NOT WANT TO ACCEPT COMFORT MEALS SINCE SHE HAS NOT BEEN ABLE TO ANYTHING SAFELY TODAY THE FAMILY HAS DECIDED TO PAY PRIVATELY FOR ROOM AND BOARD AT SNF AND WANTS TO DO COMFORT CARE WITH HOSPICE AT SNF ARRANGEMENTS IN PROCESS FOR DISCHARGE TO SNF W HOSPICE CARE JANAY GAUTAM MD Jun 14, 2025 12:55
--- NOTE | 2025-06-14 13:00 | NUR ---
[facility] Spoke w Chante @ [facility] she mentions she received referral yesterday from [facility]. She has also spoken w Dr Dixon and they are working on private pay @ [facility]. She Chante states plan is to admit today. Pt will need EMS. [facility] form faxed to [facility], originals placed in chart.
--- NOTE | 2025-06-14 14:40 | NUR ---
Report called to Neena Winter. Given to TY Diaz. Addendum: 06/14/25 at 1751 by HÉCTOR FLANAGAN RN RN Time correction. Report to Maggy was called at 1640, not 1440.
--- NOTE | 2025-06-14 14:45 | NUR ---
Report called to EMS for transport. Addendum: 06/14/25 at 0194 by HÉCTOR FLANAGAN RN RN Time correction. Report was called to EMS at 1645, not 1445.
[2025-06-14 16:10] VITALS: BP 106/43; PULSE 58; RESP 18; TEMP 98.6
--- NOTE | 2025-06-14 16:50 | NUR ---
Report called to ANGEL Garcia, with [facility]
--- NOTE | 2025-06-14 17:50 | NUR ---
EMS pick-up complete. Patient's peripheral line was discontinued. Patient's POA, Marianne Laboy (sister), signed the discharge paperwork.
--- NOTE | 2025-06-14 18:58 | DS ---
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 PLEURAL SPACES: No pleurall effusion or pneumothorax. MEDIASTINUM: Cardiac size and mediastinal contours within normal limits. BONES: No acute osseous abnormality. IMPRESSION: No acute cardiopulmonary pathology is evident. KUB FINDINGS: Bowel gas pattern: Non-specific bowel gas pattern with gas present in both small and large bowel without convincing disproportionate dilatation, multiple air-fluid levels, or a discrete transition point to suggest high-grade obstruction. No obvious free intraperitoneal air is identified within the limitations of a single supine view. Soft tissues: No definite abnormal soft tissue mass or pathologic calcification is identified. Overall abdominal contours appear unremarkable. Bones: Degenerative changes are present in the visualized lumbar spine. There is reduced height of the L3 vertebral body with changes compatible with prior vertebral augmentation/kyphoplasty. No new acute fracture or destructive osseous lesion is identified. IMPRESSION: * Non-specific, nonobstructive bowel gas pattern without radiographic evidence of high-grade bowel obstruction or free intraperitoneal air on this single abdominal view. * Degenerative changes in the lumbar spine with reduced height and prior kyphoplasty of L3, without definite new acute osseous abnormality. HOSPITAL COURSE: THIS IS A 74 YR OLD WOMAN WITH THE ABOVE PMH WHO PRESENTED WITH PROGRESSIVE ALZHEIMER'S DEMENTIA AND FAILURE TO THRIVE DUE TO POOR NUTRITIONAL INTAKE, UTI/KLEBSIELLA - MULTI DRUG RESISTANT TREATED WITH ZOSYN, RHABDOMYOLYSIS- RESOLVED, DECONDITIONING WITH FUNCTIONAL QUADRIPLEGIC AND NOW BED BOUND STATUS, AND MODERATE CALORIC PROTEIN MALNUTRITION. PATIENT AND FAMILY DECLINED PEG AND CODE STATUS ESTABLISHED DNR. FAMILY REQUESTED COMFORT CARE DUE TO POOR UNDERLYING PROGNOSIS. FAMILY DECLINED HOME WITH HOSPICE AND ALSO DECLINED HOSPICE HOME PLACEMENT. INSTEAD FAMILY DECIDED TO PAY PRIVATELY FOR ROOM AND BOARD AT A LOCAL SNF ( [facility]) AND HAVE HOSPICE ATTEND HER THERE FOR TERMINAL COMFORT CARE. ONCE ARRANGEMENTS WERE MADE SHE WAS DISCHARGED IN STABLE CONDITION. DIET: COMFORT MEDICATIONS PER [facility] ACTIVITY: BED REST CONDITION: TERMINAL EQUIPMENT: NONE FOLLOW UP APPOINTMENT(S): DR DIXON PRTamara DISPOSITION: [facility] CODE STATUS: DNR/DNI MEDICATION RECONCILIATION : Home Medications were reconciled with hospital medications upon discharge and discussed with patient and/or responsible democrat. COMFORT MEDICATIONS PER [facility] ^ Home Meds Discontinued Reported Medications Mirabegron (Myrbetriq) 50 Mg Tab.er.24h, 1 TAB PO DAILY for bladder muscle dysfunction 12/21/22 Loratadine (Claritin) 10 Mg Tab, 1 TAB PO DAILY 12/21/22 Donepezil HCl (Donepezil HCl) 5 Mg Tablet, 1 TAB PO DAILY 12/21/22 Alendronate Sodium (Alendronate Sodium) 70 Mg Tablet, 1 TAB PO QWEEK 12/21/22 Aspirin (ASPIRIN 81 MG ECTAB) 81 Mg Ectab, 81 MG PO HS, TAB.EC 12/21/22 Memantine HCl (Memantine HCl) 10 Mg Tablet, 1 TAB PO BID 12/21/22 Discontinued Scripts Nitroglycerin (Nitroglycerin) 0.4 Mg Tab.subl, 1 TAB SL AD for chest pain, #25 TAB 0 Refills 1st sign of attack; may repeat every 5 mins; if pain persists after 3 in 15 min, medical attention is recommended Prov:TAMMY DIXON MD 06/09/25 Denosumab (Prolia) 60 Mg/Ml Disp.syrin, 60 MG SQ AD, #1 DIS.SYR Prov:TAMMY DIXON MD 06/09/25 Spironolactone (Spironolactone) 25 Mg Tablet, 25 MG PO DAILY, #90 TAB Prov:TAMMY DIXON MD 06/09/25 Rosuvastatin Calcium (Rosuvastatin Calcium) 10 Mg Tablet, 20 MG PO HS, #90 TAB Prov:TAMMY DIXON MD 06/09/25 Pantoprazole Sodium (Pantoprazole Sodium) 20 Mg Tablet.dr, 20 MG PO DAILY, #90 TAB Prov:TAMMY DIXON MD 06/09/25 Mirabegron (Myrbetriq) 50 Mg Tab.er.24h, 50 MG PO DAILY, #90 TAB Prov:TAMMY DIXON MD 06/09/25 Metoprolol Succinate (Metoprolol Succinate) 25 Mg Tab.er.24h, 25 MG PO HS, #90 TAB Prov:TAMMY DIXON MD 06/09/25 Memantine HCl (Memantine HCl) 10 Mg Tablet, 10 MG PO BID, #180 TAB Prov:TAMMY DIXON MD 06/09/25 Sitagliptin Phosphate (Januvia) 100 Mg Tablet, 100 MG PO DAILYBKFST, #90 TAB Prov:TAMMY DIXON MD 06/09/25 Gabapentin (Neurontin) 300 Mg Capsule, 300 MG PO HSPRN PRN for PAIN LEVEL 6 TO 10, #90 CAP Prov:TAMMY DIXON MD 06/09/25 Ferrous Sulfate (Ferrous Sulfate) 325 Mg (65 Mg Iron) Tablet, 325 MG PO DAILY, # 90 TAB Prov:TAMMY DIXON MD 06/09/25 Dapagliflozin Propanediol (Farxiga) 5 Mg Tablet, 5 MG PO DAILYBKFST, #90 TAB Prov:TAMMY DIXON MD 06/09/25 Aspirin (Aspirin EC) 81 Mg Tablet.dr, 81 MG PO DAILY, #90 TAB Prov:TAMMY DIXON MD 06/09/25 Aripiprazole (Aripiprazole) 5 Mg Tablet, 5 MG PO DAILY, #90 TAB Prov:TAMMY DIXON MD 06/09/25 Rosuvastatin Calcium (Rosuvastatin Calcium) 10 Mg Tablet, 20 MG PO HS, #90 TAB Prov:TAMMY DIXON MD 06/09/25 Linagliptin (Tradjenta) 5 Mg Tablet, 5 MG PO DAILY, #30 TAB 1 Refill Prov:TAMMY DIXON MD 12/24/22 Pantoprazole Sodium (Pantoprazole Sodium) 40 Mg Tablet.dr, 40 MG PO DAILY, #30 TAB 1 Refill Prov:TAMMY DIXON MD 12/24/22 Acetaminophen with Codeine (Acetaminophen-Cod #3 Tablet) 1 Each Tablet, 0.5 EACH PO Q4HPRN PRN for PAIN LEVEL 6 TO 10, #30 TAB Prov:TAMMY DIXON MD 12/24/22 Gabapentin (Gabapentin) 100 Mg Capsule, 100 MG PO AD, #30 CAP 1 Refill 4 CAPS DAILY DIRECTED Prov:TAMMY DIXON MD 12/24/22 Metoprolol Succinate (Metoprolol Succinate) 25 Mg Tab.er.24h, 25 MG PO DAILY, #60 TAB 1 Refill Prov:TAMMY DIXON MD 12/22/22 Pravastatin Sodium (Pravastatin Sodium) 20 Mg Tablet, 20 MG PO HS, #60 TAB 1 Refill Prov:TAMMY DIXON MD 12/21/22 TAMMY DIXON MD Jun 14, 2025 18:58
== END 2025-06-14 17:54 | DRG 557 ==
LOC: EDH 15:53 → EDHIP 19:38 → 3CH 20:50
PROVIDERS: ADMIT Internal Medicine; ATTEND Internal Medicine
PROC: 0DJ08ZZ Inspection of Upper Intestinal Tract, Via Natural or Artificial Opening Endoscopic (ICD-10-PCS; principal; 2025-06-11)
DX: M62.82 Rhabdomyolysis (principal); G93.41 Metabolic encephalopathy; R53.2 Functional quadriplegia; F10.931 Alcohol use, unspecified with withdrawal delirium; E44.0 Moderate protein-calorie malnutrition; Z51.5 Encounter for palliative care; Z66 Do not resuscitate; N17.9 Acute kidney failure, unspecified; N39.0 Urinary tract infection, site not specified; B96.1 Klebsiella pneumoniae [K. pneumoniae] as the cause of diseases classified elsewhere; G30.9 Alzheimer's disease, unspecified; D64.9 Anemia, unspecified; E11.22 Type 2 diabetes mellitus with diabetic chronic kidney disease; J44.9 Chronic obstructive pulmonary disease, unspecified; E66.01 Morbid (severe) obesity due to excess calories; I12.9 Hypertensive chronic kidney disease with stage 1 through stage 4 chronic kidney disease, or unspecified chronic kidney disease; N18.32 Chronic kidney disease, stage 3b; D68.69 Other thrombophilia; Z16.24 Resistance to multiple antibiotics; F02.80 Dementia in other diseases classified elsewhere, unspecified severity, without behavioral disturbance, psychotic disturbance, mood disturbance, and anxiety; I48.0 Paroxysmal atrial fibrillation; E11.42 Type 2 diabetes mellitus with diabetic polyneuropathy; R62.7 Adult failure to thrive; Z96.653 Presence of artificial knee joint, bilateral; E78.00 Pure hypercholesterolemia, unspecified; K58.1 Irritable bowel syndrome with constipation; M81.0 Age-related osteoporosis without current pathological fracture; M47.816 Spondylosis without myelopathy or radiculopathy, lumbar region; K31.89 Other diseases of stomach and duodenum; R13.10 Dysphagia, unspecified; M10.9 Gout, unspecified; E53.8 Deficiency of other specified B group vitamins; Z74.01 Bed confinement status; Z79.899 Other long term (current) drug therapy; Z83.3 Family history of diabetes mellitus; Z82.49 Family history of ischemic heart disease and other diseases of the circulatory system; Z79.84 Long term (current) use of oral hypoglycemic drugs; Z82.3 Family history of stroke; Z85.42 Personal history of malignant neoplasm of other parts of uterus; Z90.710 Acquired absence of both cervix and uterus; Z68.36 Body mass index [BMI] 36.0-36.9, adult
CPT/HCPCS: 36415; 43235; 71045; 74018; 80048; 80053; 80076; 81001; 82140; 82306; 82550; 82607; 82948; 83605; 83690; 83735; 84443; 84484; 85025; 85027; 87040; 87086; 87186; 92507; 92610; 93005; 99285; A4606; G0378; J0696; J1650; J2003; J2543; J2704; J7030; A4222; A4223; A4620; J3490